=== PATIENT | female | born 1940 | race Caucasian/White ===

== ENCOUNTER 2016-03-27 | Emergency (ER) | payer MEDICARE, OTHER ==
--- NOTE | 2016-03-27 16:27 | ED ---
General Adult HPI - General Chief complaint: Skin/Abscess/Foreign Body Stated complaint: Rash - Shingles Time Seen by Provider: 03/27/16 16:14 Source: patient, RN notes reviewed Mode of arrival: ambulatory Limitations: no limitations - History of Present Illness Initial comments: Patient is a 75-year-old female who presents emergency room today with a chief complaint of a rash that started 3 days ago to the right side of her back. She states she's red blood shingles. She does admit that it is a burning type pain. She states she does not have any medications at home for this. She states typically would take Valium for pain and her nerves. She states she's feeling very anxious because of this. She denies any other complaints associated symptoms. Patient denies any recent fever, chills, shortness of breath, chest pain, back pain, abdominal pain, nausea or vomiting, numbness or tingling, dysuria or hematuria, constipation or diarrhea, headaches or visual changes, or any other complaints. - Related Data Previous Rx's Medication Instructions Recorded Hydrocodone/Acetaminophen [Rosamond 1 each PO Q6HR PRN #20 tab 03/27/16 5-325] valACYclovir HCL [Valacyclovir] 1,000 mg PO TID #21 tab 03/27/16 Allergies Allergy/AdvReac Type Severity Reaction Status Date / Time acetaminophen [From Tylenol] Allergy Unknown Verified 03/27/16 16:11 aspirin Allergy Unknown Verified 03/27/16 16:11 codeine Allergy Unknown Verified 03/27/16 16:11 Corticosteroids Allergy Unknown Verified 03/27/16 16:11 (Glucocorticoids) diphenhydramine HCl Allergy Unknown Verified 03/27/16 16:11 [From Benadryl] epinephrine Allergy Unknown Verified 03/27/16 16:11 iodine Allergy Unknown Verified 03/27/16 16:11 lidocaine HCl Allergy Unknown Verified 03/27/16 16:11 [From Xylocaine] Penicillins Allergy Unknown Verified 03/27/16 16:11 Review of Systems ROS Statement: Those systems with pertinent positive or pertinent negative responses have been documented in the HPI. ROS Other: All systems not noted in ROS Statement are negative. Past Medical History Past Medical History: Asthma, COPD Additional Past Medical History / Comment(s): ovarian cancer History of Any Multi-Drug Resistant Organisms: None Reported Past Psychological History: No Psychological Hx Reported Smoking Status: Current every day smoker Past Alcohol Use History: None Reported Past Drug Use History: None Reported General Exam - General Exam Comments Initial Comments: General: The patient is awake and alert, in no distress, and does not appear acutely ill. Eye: Pupils are equal, round and reactive to light, extra-ocular movements are intact. No nystagmus. There is normal conjunctiva bilaterally. No signs of icterus. Ears, nose, mouth and throat: There are moist mucous membranes and no oral lesions. Neck: The neck is supple, there is no tenderness or JVD. Cardiovascular: There is a regular rate and rhythm. No murmur, rub or gallop is appreciated. Respiratory: Lungs are clear to auscultation, respirations are non-labored, breath sounds are equal. No wheezes, stridor, rales, or rhonchi. Musculoskeletal: Normal ROM, no tenderness. Strength 5/5. Sensation intact. Pulses equal bilaterally 2+. Neurological: A&O x 3. CN II-XII intact, There are no obvious motor or sensory deficits. Coordination appears grossly intact. Speech is normal. Skin: She was rash located to the right posterior back a few scattered spots the same dermatome pattern on the right flank. Psychiatric: Cooperative, appropriate mood & affect, normal judgment. Limitations: no limitations Course Vital Signs 03/27/16 16:10 Temperature 98.1 F Pulse Rate 94 Respiratory 20 Rate Blood Pressure 166/72 O2 Sat by Pulse 95 Oximetry Medical Decision Making - Medical Decision Making Patient's physical findings consistent with shingles rash. Will be treated and advised follow-up the family doctor over the next 2-5 days. She does have ALLERGY to corticosteroids and lidocaine. Admits rash. Will be started on antivirals and given short prescription of pain medication for symptoms. Advised return if any symptoms increase or worsen or for any other concerns. Disposition Clinical Impression: Herpes zoster Disposition: HOME SELF-CARE Condition: Good Instructions: Shingles (ED) Additional Instructions: Please use medications as prescribed. Wear that the medicine may make you drowsy. Please follow-up the family doctor over the next 1-2 days or return here to emergency room if any symptoms increase worsen or for any other concerns. Prescriptions: Hydrocodone/Acetaminophen [Rosamond 5-325] 1 each PO Q6HR PRN #20 tab PRN Reason: Pain valACYclovir HCL [Valacyclovir] 1,000 mg PO TID #21 tab Referrals: None,Stated [Primary Care Provider] - 1-2 days Alberto Perez MD [REFERRING] - 1-2 days Time of Disposition: 16:24
== END 2016-03-27 16:39 | disposition home or self-care (01) ==
CPT/HCPCS: 99282

== ENCOUNTER 2016-04-04 15:42 | Emergency (ER) | payer MEDICARE, OTHER ==
[2016-04-04 16:35] VITALS: BP 158/79; PULSE 75; RESP 20; TEMP 97.7
--- NOTE | 2016-04-04 17:04 | ED ---
Recheck HPI - General Chief Complaint: Recheck/Abnormal Lab/Rx Stated Complaint: Poss shingles Time Seen by Provider: 04/04/16 16:46 Source: patient, RN notes reviewed Mode of arrival: ambulatory Limitations: no limitations - History of Present Illness Initial Comments: Patient presented to the ER requesting a refill on her shingles medication. She states that she was seen in the ER approximately 1 week ago for shingles and given Valtrex which does seem to be helping. She does not have a primary care physician at this time she has not seen them for evaluation or refill. She states that she is not having any constitutional symptoms including headache , fever, nausea, vomiting, abdominal pain. He also states that she has no new rash areas. - Related Data Previous Rx's Medication Instructions Recorded Hydrocodone/Acetaminophen [Paden 1 each PO Q6HR PRN #20 tab 03/27/16 5-325] valACYclovir HCL [Valacyclovir] 1,000 mg PO TID #21 tab 03/27/16 valACYclovir HCL [Valtrex] 1,000 mg PO TID #42 tablet 04/04/16 Allergies Allergy/AdvReac Type Severity Reaction Status Date / Time acetaminophen [From Tylenol] Allergy Unknown Verified 03/27/16 16:28 aspirin Allergy Unknown Verified 03/27/16 16:28 codeine Allergy Unknown Verified 03/27/16 16:28 Corticosteroids Allergy Unknown Verified 03/27/16 16:28 (Glucocorticoids) diphenhydramine HCl Allergy Unknown Verified 03/27/16 16:28 [From Benadryl] epinephrine Allergy Unknown Verified 03/27/16 16:28 iodine Allergy Unknown Verified 03/27/16 16:28 lidocaine HCl Allergy Unknown Verified 03/27/16 16:28 [From Xylocaine] Penicillins Allergy Unknown Verified 03/27/16 16:28 Review of Systems ROS Statement: Those systems with pertinent positive or pertinent negative responses have been documented in the HPI. ROS Other: All systems not noted in ROS Statement are negative. Past Medical History Past Medical History: Asthma, COPD Additional Past Medical History / Comment(s): ovarian cancer History of Any Multi-Drug Resistant Organisms: None Reported Additional Past Surgical History / Comment(s): rectal surgery. Past Psychological History: No Psychological Hx Reported Smoking Status: Current every day smoker Past Alcohol Use History: None Reported Past Drug Use History: None Reported General Exam Limitations: no limitations General appearance: alert, in no apparent distress Head exam: Present: atraumatic, normocephalic Eye exam: Present: normal appearance, PERRL, EOMI Neck exam: Present: normal inspection Respiratory exam: Present: wheezes (Secondary to smoke) Cardiovascular Exam: Present: regular rate, normal rhythm Back exam: Present: rash noted (Right mid back: Erythematous patches with healing vesicles and eschars.) Neurological exam: Present: alert, oriented X3, CN II-XII intact Psychiatric exam: Present: normal affect, normal mood Course Vital Signs 04/04/16 16:31 Temperature 97.7 F Pulse Rate 75 Respiratory 20 Rate Blood Pressure 158/79 O2 Sat by Pulse 90 L Oximetry Medical Decision Making - Medical Decision Making 75-year-old female without a primary care physician came to the ER requesting refill of her Valtrex for shingles. The area was evaluated and it does seem to be improving as there are no active vesicles and dry eschars. Refill was given for 2 weeks on her Valtrex. She was also encouraged to establish a primary care physicians that she did not have to come to the ER for refill. All questions were answered and patient is return with any worsening symptoms or concerns. Disposition Clinical Impression: Herpes zoster Disposition: HOME SELF-CARE Condition: Good Instructions: Shingles (ED) Additional Instructions: To return to ER with worsening symptoms or concerns. Followup with a new PCP in the nest week. Prescriptions: valACYclovir HCL [Valtrex] 1,000 mg PO TID #42 tablet Referrals: Giovany George MD [STAFF PHYSICIAN] - 1-2 days Time of Disposition: 17:04
== END 2016-04-04 17:19 | disposition home or self-care (01) ==
LOC: EC 15:42
DX: B02.9 Zoster without complications (principal); Z88.6 Allergy status to analgesic agent; Z88.4 Allergy status to anesthetic agent; Z88.5 Allergy status to narcotic agent; Z88.0 Allergy status to penicillin; Z88.8 Allergy status to other drugs, medicaments and biological substances; F17.200 Nicotine dependence, unspecified, uncomplicated
CPT/HCPCS: 99282

== ENCOUNTER 2017-10-07 15:34 | Inpatient (IN) | payer MEDICARE, OTHER ==
--- NOTE | 2017-10-07 16:17 | ED ---
General Adult HPI - General Chief complaint: Weakness Stated complaint: dehydration Time Seen by Provider: 10/07/17 15:58 Source: EMS Mode of arrival: EMS Limitations: no limitations - History of Present Illness Initial comments: Gaye Nair is a 76-year-old female with a medical history of ovarian cancer currently undergoing chemotherapy she is brought to the ED today via EMS for evaluation of generalized weakness, altered mental status and decreased by mouth intake. History is provided by the patient's daughter as the patient is minimally able to answer questions. Daughter reports that the patient has been undergoing extensive chemotherapy, she reports that last week the patient was in her usual state of health, able to get off the couch walk around and eat normal meals. She reports that over the past couple days the patient has not eaten or drank anything. Family estimates the patient at 2 ounces of milk yesterday no other by mouth intake. They report that she's become so weak she hasn't gotten off the couch and cannot move. S reports that they found the patient laying on the couch, she had soiled herself in the couch was soiled. They reported that it looked associated been there for a period of time as there was significant amount of muscle around her. Patient was noted to be hypotensive and profoundly dehydrated. - Related Data Home Medications Medication Instructions Recorded Confirmed No Known Home Medications 10/07/17 10/07/17 Allergies Allergy/AdvReac Type Severity Reaction Status Date / Time acetaminophen [From Tylenol] Allergy Unknown Verified 10/07/17 16:39 aspirin Allergy Unknown Verified 10/07/17 16:39 codeine Allergy Unknown Verified 10/07/17 16:39 Corticosteroids Allergy Unknown Verified 10/07/17 16:39 (Glucocorticoids) diphenhydramine HCl Allergy Unknown Verified 10/07/17 16:39 [From Benadryl] epinephrine Allergy Unknown Verified 10/07/17 16:39 ibuprofen [From Motrin] Allergy Rash/Hives Verified 10/07/17 16:39 iodine Allergy Unknown Verified 10/07/17 16:39 lidocaine HCl Allergy Unknown Verified 10/07/17 16:39 [From Xylocaine] Penicillins Allergy Unknown Verified 10/07/17 16:39 Review of Systems ROS Statement: Those systems with pertinent positive or pertinent negative responses have been documented in the HPI. ROS Other: All systems not noted in ROS Statement are negative. Limitations: ROS unobtainable due to patients medical condition Past Medical History Past Medical History: Asthma, COPD Additional Past Medical History / Comment(s): ovarian cancer History of Any Multi-Drug Resistant Organisms: None Reported Additional Past Surgical History / Comment(s): rectal surgery. Past Psychological History: No Psychological Hx Reported Smoking Status: Former smoker Past Alcohol Use History: None Reported Past Drug Use History: None Reported General Exam Limitations: altered mental status General appearance: alert, lethargic, cachectic Head exam: Present: atraumatic, normocephalic, other (As temp oral wasting, eyes are sunken) Eye exam: Present: PERRL, EOMI ENT exam: Present: mucous membranes dry Respiratory exam: Absent: respiratory distress Cardiovascular Exam: Present: normal rhythm, tachycardia GI/Abdominal exam: Present: other (Scaphoid abdomen, nontender to palpation) Rectal exam: Present: deferred Extremities exam: Present: other (Generalized atrophy) Neurological exam: Present: alert, other (Oriented to self, answer yes and no questions) Psychiatric exam: Present: flat affect Skin exam: Present: dry (Skin is dry, there is skin tenting and evidence of dehydration) Course Vital Signs 10/07/17 10/07/17 10/07/17 15:41 16:00 16:30 Temperature 95.9 F L Pulse Rate 101 H 94 90 Respiratory 24 20 20 Rate Blood Pressure 83/48 84/50 76/47 O2 Sat by Pulse 80 L 85 L 79 L Oximetry 10/07/17 10/07/17 10/07/17 17:00 17:35 18:00 Temperature Pulse Rate 90 88 88 Respiratory 18 16 18 Rate Blood Pressure 78/50 81/53 88/50 O2 Sat by Pulse 94 L 99 99 Oximetry 10/07/17 10/07/17 10/07/17 18:30 19:07 19:47 Temperature Pulse Rate 92 92 93 Respiratory 16 16 20 Rate Blood Pressure 107/55 89/51 111/55 O2 Sat by Pulse 91 L 96 98 Oximetry 10/07/17 10/07/17 10/07/17 20:28 20:50 21:16 Temperature 97 F L Pulse Rate 77 95 Respiratory 18 18 Rate Blood Pressure 128/71 88/55 106/56 O2 Sat by Pulse 98 99 97 Oximetry - Reevaluation(s) Reevaluation #1: Patient reevaluated, she has received 1/2 L of IV fluids, she is receiving antibiotics, she is on pressors, at this time the patient is appearing more well -hydrated. She is more alert. Patient is asking who is taking care of her dogs at home. 10/07/17 18:19 Procedures - Central Line Placement Right IJ Consent Obtained: verbal consent Time Out Performed: Yes Patient Placed on Monitor/Pulse Ox: Yes MD Prep: mask, gown, gloves Central Line Prep: Chlorhexidine scrub Local Anesthesia Used: Lidocaine 1% Ultrasound Used for Placement: Yes Central Line Lumen Inserted: triple Bloods Obtained for Lab: Yes Central Line Position: good blood return, all ports aspirated, flushed, capped Dressing Applied: Tegaderm Patient Tolerated Procedure: well Medical Decision Making - Medical Decision Making The patient was seen and evaluated, patient is profoundly cachectic, dehydrated very unwell-appearing Patient is tachycardic, hypothermic, sepsis workup was ordered Family arrived at bedside, confirm the patient is full code and wouldn't want a central line as well as all medications are resuscitative measures Patient becoming hypotensive, Patient noted to becoming more hypotensive despite IV fluids. Risks and benefits of central line were discussed with the family and they provided verbal consent to place a right IJ central line. Central line was placed under ultrasound guidance. Without complication. Labs multiple significant abnormalities, most notably acute kidney failure, acute liver failure, elevated troponin, I suspect these are all secondary to septic shock. IV fluids, broad-spectrum antibiotics and levothyroid have been ordered and are infusing. Reevaluated after IV fluid bolus and Levophed, her blood pressures improvement in her mental status has improved. The patient is now asking about the care of her dogs at home. Although she does still appear very cachectic and unwell. Due to the multiple abnormalities in her labs a computed tomography scan as well as an ultrasound of the abdomen were ordered. Daughter stated the patient received multiple radiation treatments to the brain for metastases, considering her mental status change in history of best the brain and CT of the head was ordered With no acute findings Liver suggestive of multiple metastases Patient care was discussed with the patient's oncology team who agree with the plan for admission to ICU with a consult to oncology and potentially consult palliative medicine. Patient care was discussed with Dr. Franklin who agrees with plan for admission to the ICU. Patient care was discussed with Dr. Gomez the environmental services tech who agrees with workup as ordered, treatment with broad-spectrum antibiotics, levothyroid, IV fluids. He accepts the patient to the ICU service. Patient was transferred to the intensive care unit, patient remained on a nonrebreather, fluids infusing through the central line, improved on the levophed - Lab Data Result diagrams: 10/07/17 17:30 10/07/17 17:30 Lab Results 10/07/17 10/07/17 10/07/17 Range/Units 17:30 17:30 17:30 WBC 9.6 (3.8-10.6) k/uL RBC 4.16 (3.80-5.40) m/uL Hgb 13.7 (11.4-16.0) gm/dL Hct 42.1 (34.0-46.0) % MCV 101.1 H (80.0-100.0) fL MCH 33.0 (25.0-35.0) pg MCHC 32.6 (31.0-37.0) g/dL RDW 19.9 H (11.5-15.5) % Plt Count 92 L (150-450) k/uL Neutrophils % 89 % Lymphocytes % 3 % Monocytes % 6 % Eosinophils % 0 % Basophils % 0 % Neutrophils # 8.6 H (1.3-7.7) k/uL Lymphocytes # 0.3 L (1.0-4.8) k/uL Monocytes # 0.6 (0-1.0) k/uL Eosinophils # 0.0 (0-0.7) k/uL Basophils # 0.0 (0-0.2) k/uL Manual Slide Review Performed Hypochromasia Slight Anisocytosis Slight Macrocytosis Moderate PT 16.9 H (9.0-12.0) sec INR 1.9 H (<1.2) APTT 37.3 H (22.0-30.0) sec Sodium 138 (137-145) mmol/L Potassium 4.4 (3.5-5.1) mmol/L Chloride 109 H (98-107) mmol/L Carbon Dioxide 20 L (22-30) mmol/L Anion Gap 9 mmol/L BUN 99 H* (7-17) mg/dL Creatinine 1.71 H (0.52-1.04) mg/dL Est GFR (CKD-EPI)AfAm 33 (>60 ml/min/1.73 sqM) Est GFR (CKD-EPI)NonAf 28 (>60 ml/min/1.73 sqM) Glucose 106 H (74-99) mg/dL Plasma Lactic Acid Stalin (0.7-2.0) mmol/L Calcium 9.3 (8.4-10.2) mg/dL Total Bilirubin 7.7 H (0.2-1.3) mg/dL AST 288 H (14-36) U/L ALT 122 H (9-52) U/L Alkaline Phosphatase 659 H (38-126) U/L Total Creatine Kinase (30-135) U/L CK-MB (CK-2) (0.0-2.4) ng/mL CK-MB (CK-2) Rel Index Troponin I (0.000-0.034) ng/mL Total Protein 4.1 L (6.3-8.2) g/dL Albumin 2.1 L (3.5-5.0) g/dL Urine Color Urine Appearance (Clear) Urine pH (5.0-8.0) Ur Specific Elizabeth (1.001-1.035) Urine Protein (Negative) Urine Glucose (UA) (Negative) Urine Ketones (Negative) Urine Blood (Negative) Urine Nitrite (Negative) Urine Bilirubin (Negative) Urine Urobilinogen (<2.0) mg/dL Ur Leukocyte Esterase (Negative) 10/07/17 10/07/17 10/07/17 Range/Units 17:30 17:30 18:00 WBC (3.8-10.6) k/uL RBC (3.80-5.40) m/uL Hgb (11.4-16.0) gm/dL Hct (34.0-46.0) % MCV (80.0-100.0) fL MCH (25.0-35.0) pg MCHC (31.0-37.0) g/dL RDW (11.5-15.5) % Plt Count (150-450) k/uL Neutrophils % % Lymphocytes % % Monocytes % % Eosinophils % % Basophils % % Neutrophils # (1.3-7.7) k/uL Lymphocytes # (1.0-4.8) k/uL Monocytes # (0-1.0) k/uL Eosinophils # (0-0.7) k/uL Basophils # (0-0.2) k/uL Manual Slide Review Hypochromasia Anisocytosis Macrocytosis PT (9.0-12.0) sec INR (<1.2) APTT (22.0-30.0) sec Sodium (137-145) mmol/L Potassium (3.5-5.1) mmol/L Chloride (98-107) mmol/L Carbon Dioxide (22-30) mmol/L Anion Gap mmol/L BUN (7-17) mg/dL Creatinine (0.52-1.04) mg/dL Est GFR (CKD-EPI)AfAm (>60 ml/min/1.73 sqM) Est GFR (CKD-EPI)NonAf (>60 ml/min/1.73 sqM) Glucose (74-99) mg/dL Plasma Lactic Acid Stalin 2.0 (0.7-2.0) mmol/L Calcium (8.4-10.2) mg/dL Total Bilirubin (0.2-1.3) mg/dL AST (14-36) U/L ALT (9-52) U/L Alkaline Phosphatase (38-126) U/L Total Creatine Kinase 112 (30-135) U/L CK-MB (CK-2) 3.8 H* (0.0-2.4) ng/mL CK-MB (CK-2) Rel Index 3.4 Troponin I 0.839 H* (0.000-0.034) ng/mL Total Protein (6.3-8.2) g/dL Albumin (3.5-5.0) g/dL Urine Color Dark Brown Urine Appearance Clear (Clear) Urine pH 5.0 (5.0-8.0) Ur Specific Elizabeth 1.014 (1.001-1.035) Urine Protein Trace H (Negative) Urine Glucose (UA) Negative (Negative) Urine Ketones Negative (Negative) Urine Blood Negative (Negative) Urine Nitrite Negative (Negative) Urine Bilirubin 2+ H (Negative) Urine Urobilinogen 4.0 (<2.0) mg/dL Ur Leukocyte Esterase Negative (Negative) Disposition Clinical Impression: Septic shock, Elevated troponin, Elevated liver enzymes, Acute kidney failure, 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
--- NOTE | 2017-10-07 16:56 | XR ---
EXAMINATION TYPE: XR chest 1V portable DATE OF EXAM: 10/07/2017 COMPARISON: 10/25/2014 HISTORY: Fever and weakness TECHNIQUE: Single frontal view of the chest is obtained. FINDINGS: There is blunting of right costophrenic angle with patchy infiltrate at the right lung bas e. There is no heart failure. Heart is shifted slightly to the right side. There are chest leads. IMPRESSION: There is new infiltrate and atelectasis and pleural reaction at the right lung base comp ared to old exam. No heart failure.
[2017-10-07] MEDS: SODIUM CHLORIDE 0.9% 500 ML IV SCH (17:30)
[2017-10-07] MEDS ORDERED: NOREPINEPHRINE 4 MG in DEXTROSE 5% IN WATER 250 ML IV ONE ×2 (17:32)
[2017-10-07] MEDS ORDERED: VANCOMYCIN 500 MG in SODIUM CHLORIDE 0.9% 250 ML IVPB ONE (17:34)
[2017-10-07] MEDS ORDERED: CEFEPIME 1 GM in SODIUM CHLORIDE 0.9% 50 ML IVPB STA (17:34)
[2017-10-07] MEDS: SODIUM CHLORIDE 0.9% 1,000 ML IV SCH (18:06)
[2017-10-07 18:14] LABS: INR 1.9 (<1.2); Partial Thromboplastin Time 37.3 sec (22.0-30.0); Prothrombin Time 16.9 sec (9.0-12.0)
[2017-10-07 18:18] LABS: Albumin 2.1 g/dL (3.5-5.0); Calcium 9.3 mg/dL (8.4-10.2); Potassium 4.4 mmol/L (3.5-5.1); Total Bilirubin 7.7 mg/dL (0.2-1.3); Total Protein 4.1 g/dL (6.3-8.2)
[2017-10-07 18:25] LABS: Appearance,Urine Clear (Clear); Bilirubin,Urine 2+ (Negative); Blood,Urine Negative (Negative); Color,Urine Dark Brown; Glucose,Urine (UA) Negative (Negative); Ketones,Urine Negative (Negative); Leukocyte Esterase,Urine Negative (Negative); Nitrite,Urine Negative (Negative); Protein,Urine Trace (Negative); Specific Gravity,Urine 1.014 (1.001-1.035)
[2017-10-07 18:29] LABS: Anisocytosis Slight; Basophils % (A) 0 %; Eosinophils % (A) 0 %; HCT 42.1 % (34.0-46.0); HGB 13.7 gm/dL (11.4-16.0); Hypochromasia Slight; Lymphocytes # (A) 0.3 k/uL (1.0-4.8); Lymphocytes % (A) 3 %; MCHC 32.6 g/dL (31.0-37.0); MCV 101.1 fL (80.0-100.0); Macrocytosis Moderate; Mean Platelet Volume 9.2; Monocytes # (A) 0.6 k/uL (0-1.0); Monocytes % (A) 6 %; Neutrophils # (A) 8.6 k/uL (1.3-7.7); Neutrophils % (A) 89 %; RBC 4.16 m/uL (3.80-5.40); RDW 19.9 % (11.5-15.5); WBC 9.6 k/uL (3.8-10.6)
[2017-10-07 18:44] LABS: Creatine Kinase MB 3.8 ng/mL (0.0-2.4); Troponin I 0.839 ng/mL (0.000-0.034)
[2017-10-07 18:53] LABS: Platelet Count 92 k/uL (150-450)
[2017-10-07] MEDS ORDERED: NALOXONE 0.4 MG/ML 1 ML VIAL IV PRN (19:33)
--- NOTE | 2017-10-07 20:19 | US ---
EXAMINATION TYPE: US gallbladder DATE OF EXAM: 10/07/2017 COMPARISON: NONE CLINICAL HISTORY: Pain. EXAM MEASUREMENTS: Liver Length: 20.0 cm Gallbladder Wall: not positively identified CBD: 0.6 cm Right Kidney: 8.4 x 2.9 x 3.7 cm Patient unable to cooperate with examiner, trying to cover her abdomen during exam. Technically diffi cult and limited study. Pancreas: limited visualization partially obscure by bowel gas, no evident mass, enlarged Liver: grossly heterogeneous, possible multiple liver masses Gallbladder: unable to positively identify gallbladder Evidence for sonographic Degroot's sign: no CBD: wnl Right Kidney: atrophied IMPRESSION: Gallbladder is not seen. No dilated ducts. Heterogeneous liver suspicious for multiple li phill masses. No ascites. Right kidney is small consistent with atrophy. No hydronephrosis.
--- NOTE | 2017-10-07 20:52 | CT ---
EXAMINATION TYPE: CT brain nohemy ramirez DATE OF EXAM: 10/07/2017 COMPARISON: CT brain 03/09/2010 HISTORY: Generalized weakness. CT DLP: 1140.8 mGycm Automated exposure control for dose reduction was used. TECHNIQUE: CT scan of the head and cervical spine are performed without contrast. FINDINGS: There is mild cerebral cortical atrophy. There is no mass effect nor midline shift. There is no evidence of intracranial hemorrhage. The calvarium is intact. Cervical vertebra have normal alignment. Disc spaces are narrowed at C4-5 C5-6. There is old anterior fusion at C5-6. Facet joints are intact. The skull base is intact. IMPRESSION: Cerebral atrophy. No acute intracranial abnormality. Old mild chronic small vessel ischemia in the le ft posterior frontal lobe without change. Spondylotic changes in the cervical spine. No fracture.
--- NOTE | 2017-10-07 21:02 | CT ---
EXAMINATION TYPE: CT abdomen pelvis wo con DATE OF EXAM: 10/07/2017 COMPARISON: None HISTORY: Generalized weakness. CT DLP: 391.2 mGycm Automated exposure control for dose reduction was used. TECHNIQUE: Helical acquisition of images was performed from the lung bases through the pelvis. FINDINGS: There is some infiltrate and atelectasis at the right lung base. There is also small infiltrate at th e left posterior lung base. Liver is large and measures 20 cm in length. Spleen appears normal. There is no evidence of pancreati c mass. There is no evidence of free air. The kidneys show no hydronephrosis. There is free fluid around the liver. There is a 9 x 6 cm thick-walled cystic fluid collection in the right upper quadrant inferior to the right lobe of the liver. There is also some air on the medial a t anterior aspect of the mass. This is not communicating with the bowel. There are distended gas and fluid-filled loops of small bowel consistent with ileus. Large bowel is n ot dilated. There is free fluid in the pelvis. There is Gresham catheter in the urinary bladder. I see no bony destructive process. IMPRESSION: THERE IS FREE FLUID IN THE RIGHT PERIHEPATIC REGION WELL IN THE PELVIS. THERE IS A COMPLEX RIGH T UPPER QUADRANT MASS. IS NOT CLEAR IF THIS IS RETROPERITONEAL. THIS IS LIKELY A SUBHEPATIC ABSCESS. THERE IS EVIDENCE OF SMALL BOWEL ILEUS.
[2017-10-07 21:49] LABS: Glucose,Whole Blood 115 mg/dL (75-99)
[2017-10-07] MEDS ORDERED: VANCOMYCIN IV PER PHARMACY 1 EACH MISC MISCELLANE PRN (22:22)
[2017-10-07] MEDS ORDERED: SODIUM CHLORIDE 0.9% 1,000 ML IV ONE ×2 (22:49→23:53)
[2017-10-07] MEDS: NOREPINEPHRIN 16 MG-0.9%NS PMX 16 MG/250 ML ML IV SCH (23:22)
[2017-10-08] MEDS ORDERED: MEROPENEM 1 GM in SODIUM CHLORIDE 0.9% 100 ML IVPB SCH ×2
[2017-10-08 05:44] LABS: Anisocytosis Moderate; Basophils % (A) 0 %; Eosinophils % (A) 0 %; HCT 51.7 % (34.0-46.0); HGB 15.8 gm/dL (11.4-16.0); Hypochromasia Marked; Lymphocytes # (A) 2.2 k/uL (1.0-4.8); Lymphocytes % (A) 18 %; MCH 32.3 pg (25.0-35.0); MCHC 30.5 g/dL (31.0-37.0); MCV 105.6 fL (80.0-100.0); Macrocytosis Marked; Monocytes # (A) 0.6 k/uL (0-1.0); Monocytes % (A) 5 %; Neutrophils # (A) 8.9 k/uL (1.3-7.7); Neutrophils % (A) 73 %; Platelet Count 106 k/uL (150-450); RDW 20.2 % (11.5-15.5); WBC 12.2 k/uL (3.8-10.6)
[2017-10-08 05:52] LABS: Calcium 9.4 mg/dL (8.4-10.2); Magnesium 2.5 mg/dL (1.6-2.3); Phosphorus 4.9 mg/dL (2.5-4.5); Potassium 4.9 mmol/L (3.5-5.1)
[2017-10-08 05:54] LABS: INR 1.8 (<1.2); Partial Thromboplastin Time 36.9 sec (22.0-30.0); Prothrombin Time 16.2 sec (9.0-12.0)
[2017-10-08] MEDS ORDERED: VANCOMYCIN 750 MG in SODIUM CHLORIDE 0.9% 250 ML IVPB ONE (06:00)
[2017-10-08 06:10] LABS: Glucose,Whole Blood 169 mg/dL (75-99)
[2017-10-08] MEDS: SODIUM CHLORIDE 0.9% 1,000 ML IV SCH (06:10)
[2017-10-08 06:18] LABS: Poikilocytosis (M) Present
--- NOTE | 2017-10-08 07:11 | XR ---
EXAMINATION TYPE: XR chest 1V DATE OF EXAM: 10/08/2017 HISTORY: resp distress. REFERENCE: Previous study dated 10/07/2017. FINDINGS: A right internal jugular sheath catheter is been inserted. Its tip is in the superior vena cava. The lungs are overinflated. There is right basilar airspace disease as well as a small right effusion . The overall appearance has not changed. The heart is not enlarged. IMPRESSION: 1. CONTINUING RIGHT BASILAR AIRSPACE DISEASE. 2. SMALL RIGHT EFFUSION.
[2017-10-08] MEDS: NOREPINEPHRIN 16 MG-0.9%NS PMX 16 MG/250 ML ML IV SCH (07:17)
[2017-10-08] MEDS ORDERED: SODIUM CHLORIDE 0.9% 1,000 ML IV ONE ×4 (08:00→17:16)
[2017-10-08 08:23] LABS: ABG Base Excess -14.4 mmol/L; ABG HCO3 15 mmol/L (21-25); ABG PCO2 43 mmHg (35-45); ABG PO2 132 mmHg (83-108); ABG TCO2 16 mmol/L (19-24)
[2017-10-08] MEDS ORDERED: SODIUM BICARB 8.4% 50 ML SYR (1 MEQ/ML) ONE (08:25)
[2017-10-08] MEDS ORDERED: SODIUM BICARB 8.4% 50 ML SYR (1 MEQ/ML) IV STA (08:34)
[2017-10-08 08:37] LABS: Total Bilirubin 8.6 mg/dL (0.2-1.3)
[2017-10-08] MEDS: DEXTROSE 5% IN WATER 1,000 ML with SODIUM BICARB (1 MEQ/ML) 150 ML IV ONE ×2 (08:37→20:26)
[2017-10-08] MEDS: PANTOPRAZOLE 40 MG/10 ML VIAL IV SCH (08:47)
--- NOTE | 2017-10-08 10:07 | P.GSCN ---
History of Present Illness Consult date: 10/08/17 Reason for Consult: Liver mass History of present illness: This is a 76-year-old female is admitted to the ICU. The patient is unable to give any significant medical history. Per the chart the patient has a history of ovarian cancer is currently undergoing medical therapy. Patient was admitted through the emergency room with complaints of abdominal pain. Her CAT scan shows a 6 cm liver mass that could possibly be a hepatic abscess. Past Medical History Past Medical History: Asthma, COPD Additional Past Medical History / Comment(s): ovarian cancer, lung CA History of Any Multi-Drug Resistant Organisms: None Reported Past Surgical History: Cholecystectomy, Hysterectomy Additional Past Surgical History / Comment(s): rectal surgery. Past Anesthesia/Blood Transfusion Reactions: No Reported Reaction Past Psychological History: No Psychological Hx Reported Smoking Status: Former smoker Past Alcohol Use History: None Reported Past Drug Use History: None Reported Medications and Allergies Home Medications Medication Instructions Recorded Confirmed Type No Known Home Medications 10/07/17 10/07/17 History Allergies Allergy/AdvReac Type Severity Reaction Status Date / Time acetaminophen [From Tylenol] Allergy Unknown Verified 10/07/17 16:39 aspirin Allergy Unknown Verified 10/07/17 16:39 codeine Allergy Unknown Verified 10/07/17 16:39 Corticosteroids Allergy Unknown Verified 10/07/17 16:39 (Glucocorticoids) diphenhydramine HCl Allergy Unknown Verified 10/07/17 16:39 [From Benadryl] epinephrine Allergy Unknown Verified 10/07/17 16:39 ibuprofen [From Motrin] Allergy Rash/Hives Verified 10/07/17 16:39 iodine Allergy Unknown Verified 10/07/17 16:39 lidocaine HCl Allergy Unknown Verified 10/07/17 16:39 [From Xylocaine] Penicillins Allergy Unknown Verified 10/07/17 16:39 Surgical - Exam Vital Signs Temp Pulse Resp BP Pulse Ox 95.9 F L 101 H 24 83/48 80 L 10/07/17 15:41 10/07/17 15:41 10/07/17 15:41 10/07/17 15:41 10/07/17 15:41 - General well developed, no distress - Eyes PERRL - ENT normal pinna - Neck no masses - Respiratory normal expansion - Cardiovascular Rhythm: regular - Abdomen Mild tenderness throughout. There is no rebound or guarding. Abdomen: soft, no guarding, no rigid, no rebound Results - Labs 10/08/17 05:10 10/08/17 05:10 Abnormal Lab Results - Last 24 Hours (Table) 10/07/17 10/07/17 10/07/17 Range/Units 17:30 17:30 17:30 WBC (3.8-10.6) k/uL Hct (34.0-46.0) % MCV 101.1 H (80.0-100.0) fL MCHC (31.0-37.0) g/dL RDW 19.9 H (11.5-15.5) % Plt Count 92 L (150-450) k/uL Neutrophils # 8.6 H (1.3-7.7) k/uL Lymphocytes # 0.3 L (1.0-4.8) k/uL PT 16.9 H (9.0-12.0) sec INR 1.9 H (<1.2) APTT 37.3 H (22.0-30.0) sec ABG pH (7.35-7.45) ABG pO2 (83-108) mmHg ABG HCO3 (21-25) mmol/L ABG Total CO2 (19-24) mmol/L ABG O2 Saturation (94-97) % Chloride 109 H (98-107) mmol/L Carbon Dioxide 20 L (22-30) mmol/L BUN 99 H* (7-17) mg/dL Creatinine 1.71 H (0.52-1.04) mg/dL Glucose 106 H (74-99) mg/dL POC Glucose (mg/dL) (75-99) mg/dL Phosphorus (2.5-4.5) mg/dL Magnesium (1.6-2.3) mg/dL Total Bilirubin 7.7 H (0.2-1.3) mg/dL AST 288 H (14-36) U/L ALT 122 H (9-52) U/L Alkaline Phosphatase 659 H (38-126) U/L CK-MB (CK-2) (0.0-2.4) ng/mL Troponin I (0.000-0.034) ng/mL Total Protein 4.1 L (6.3-8.2) g/dL Albumin 2.1 L (3.5-5.0) g/dL Urine Protein (Negative) Urine Bilirubin (Negative) 10/07/17 10/07/17 10/07/17 Range/Units 17:30 18:00 21:48 WBC (3.8-10.6) k/uL Hct (34.0-46.0) % MCV (80.0-100.0) fL MCHC (31.0-37.0) g/dL RDW (11.5-15.5) % Plt Count (150-450) k/uL Neutrophils # (1.3-7.7) k/uL Lymphocytes # (1.0-4.8) k/uL PT (9.0-12.0) sec INR (<1.2) APTT (22.0-30.0) sec ABG pH (7.35-7.45) ABG pO2 (83-108) mmHg ABG HCO3 (21-25) mmol/L ABG Total CO2 (19-24) mmol/L ABG O2 Saturation (94-97) % Chloride (98-107) mmol/L Carbon Dioxide (22-30) mmol/L BUN (7-17) mg/dL Creatinine (0.52-1.04) mg/dL Glucose (74-99) mg/dL POC Glucose (mg/dL) 115 H (75-99) mg/dL Phosphorus (2.5-4.5) mg/dL Magnesium (1.6-2.3) mg/dL Total Bilirubin (0.2-1.3) mg/dL AST (14-36) U/L ALT (9-52) U/L Alkaline Phosphatase (38-126) U/L CK-MB (CK-2) 3.8 H* (0.0-2.4) ng/mL Troponin I 0.839 H* (0.000-0.034) ng/mL Total Protein (6.3-8.2) g/dL Albumin (3.5-5.0) g/dL Urine Protein Trace H (Negative) Urine Bilirubin 2+ H (Negative) 10/08/17 10/08/17 10/08/17 Range/Units 05:10 05:10 05:10 WBC 12.2 H (3.8-10.6) k/uL Hct 51.7 H (34.0-46.0) % MCV 105.6 H (80.0-100.0) fL MCHC 30.5 L (31.0-37.0) g/dL RDW 20.2 H (11.5-15.5) % Plt Count 106 L (150-450) k/uL Neutrophils # 8.9 H (1.3-7.7) k/uL Lymphocytes # (1.0-4.8) k/uL PT 16.2 H (9.0-12.0) sec INR 1.8 H (<1.2) APTT 36.9 H (22.0-30.0) sec ABG pH (7.35-7.45) ABG pO2 (83-108) mmHg ABG HCO3 (21-25) mmol/L ABG Total CO2 (19-24) mmol/L ABG O2 Saturation (94-97) % Chloride 114 H (98-107) mmol/L Carbon Dioxide 13 L (22-30) mmol/L BUN 91 H* (7-17) mg/dL Creatinine 1.50 H (0.52-1.04) mg/dL Glucose 156 H (74-99) mg/dL POC Glucose (mg/dL) (75-99) mg/dL Phosphorus 4.9 H (2.5-4.5) mg/dL Magnesium 2.5 H (1.6-2.3) mg/dL Total Bilirubin (0.2-1.3) mg/dL AST (14-36) U/L ALT (9-52) U/L Alkaline Phosphatase (38-126) U/L CK-MB (CK-2) (0.0-2.4) ng/mL Troponin I (0.000-0.034) ng/mL Total Protein (6.3-8.2) g/dL Albumin (3.5-5.0) g/dL Urine Protein (Negative) Urine Bilirubin (Negative) 10/08/17 10/08/17 10/08/17 Range/Units 05:10 06:07 08:16 WBC (3.8-10.6) k/uL Hct (34.0-46.0) % MCV (80.0-100.0) fL MCHC (31.0-37.0) g/dL RDW (11.5-15.5) % Plt Count (150-450) k/uL Neutrophils # (1.3-7.7) k/uL Lymphocytes # (1.0-4.8) k/uL PT (9.0-12.0) sec INR (<1.2) APTT (22.0-30.0) sec ABG pH 7.14 L* (7.35-7.45) ABG pO2 132 H (83-108) mmHg ABG HCO3 15 L (21-25) mmol/L ABG Total CO2 16 L (19-24) mmol/L ABG O2 Saturation 99.0 H (94-97) % Chloride (98-107) mmol/L Carbon Dioxide (22-30) mmol/L BUN (7-17) mg/dL Creatinine (0.52-1.04) mg/dL Glucose (74-99) mg/dL POC Glucose (mg/dL) 169 H (75-99) mg/dL Phosphorus (2.5-4.5) mg/dL Magnesium (1.6-2.3) mg/dL Total Bilirubin 8.6 H (0.2-1.3) mg/dL AST 309 H (14-36) U/L ALT 139 H (9-52) U/L Alkaline Phosphatase 782 H (38-126) U/L CK-MB (CK-2) (0.0-2.4) ng/mL Troponin I (0.000-0.034) ng/mL Total Protein (6.3-8.2) g/dL Albumin (3.5-5.0) g/dL Urine Protein (Negative) Urine Bilirubin (Negative) Microbiology - Last 24 Hours (Table) 10/07/17 18:00 Urine Culture - Preliminary Urine,Voided Diabetes panel 10/07/17 10/08/17 10/08/17 Range/Units 17:30 05:10 05:10 Sodium 138 142 (137-145) mmol/L Potassium 4.4 4.9 (3.5-5.1) mmol/L Chloride 109 H 114 H (98-107) mmol/L Carbon Dioxide 20 L 13 L (22-30) mmol/L BUN 99 H* 91 H* (7-17) mg/dL Creatinine 1.71 H 1.50 H (0.52-1.04) mg/dL Glucose 106 H 156 H (74-99) mg/dL Calcium 9.3 9.4 (8.4-10.2) mg/dL AST 288 H 309 H (14-36) U/L ALT 122 H 139 H (9-52) U/L Alkaline Phosphatase 659 H 782 H (38-126) U/L Total Protein 4.1 L (6.3-8.2) g/dL Albumin 2.1 L (3.5-5.0) g/dL Calcium panel 10/07/17 10/08/17 Range/Units 17:30 05:10 Calcium 9.3 9.4 (8.4-10.2) mg/dL Phosphorus 4.9 H (2.5-4.5) mg/dL Albumin 2.1 L (3.5-5.0) g/dL Pituitary panel 10/07/17 10/08/17 Range/Units 17:30 05:10 Sodium 138 142 (137-145) mmol/L Potassium 4.4 4.9 (3.5-5.1) mmol/L Chloride 109 H 114 H (98-107) mmol/L Carbon Dioxide 20 L 13 L (22-30) mmol/L BUN 99 H* 91 H* (7-17) mg/dL Creatinine 1.71 H 1.50 H (0.52-1.04) mg/dL Glucose 106 H 156 H (74-99) mg/dL Calcium 9.3 9.4 (8.4-10.2) mg/dL Adrenal panel 10/07/17 10/08/17 10/08/17 Range/Units 17:30 05:10 05:10 Sodium 138 142 (137-145) mmol/L Potassium 4.4 4.9 (3.5-5.1) mmol/L Chloride 109 H 114 H (98-107) mmol/L Carbon Dioxide 20 L 13 L (22-30) mmol/L BUN 99 H* 91 H* (7-17) mg/dL Creatinine 1.71 H 1.50 H (0.52-1.04) mg/dL Glucose 106 H 156 H (74-99) mg/dL Calcium 9.3 9.4 (8.4-10.2) mg/dL Total Bilirubin 7.7 H 8.6 H (0.2-1.3) mg/dL AST 288 H 309 H (14-36) U/L ALT 122 H 139 H (9-52) U/L Alkaline Phosphatase 659 H 782 H (38-126) U/L Total Protein 4.1 L (6.3-8.2) g/dL Albumin 2.1 L (3.5-5.0) g/dL - Imaging CT scan - abdomen: report reviewed (9 by 6 cm right upper quadrant complex mass. This could possibly be a liver abscess. Or be originating from the retro -perineum.) Assessment and Plan Assessment: Right upper quadrant mass. Patient will be scheduled for interventional radiology to perform percutaneous aspiration/biopsy.
[2017-10-08 11:54] LABS: Glucose,Whole Blood 200 mg/dL (75-99)
[2017-10-08] MEDS: MEROPENEM 1 GM in SODIUM CHLORIDE 0.9% 100 ML IVPB SCH ×2 (12:28→23:09)
[2017-10-08 12:57] VITALS: BMI 19.3
[2017-10-08] MEDS ORDERED: MORPHINE SULFATE 4 MG/ML SYRINGE IVP PRN (14:24)
--- NOTE | 2017-10-08 14:47 | P.CNPUL ---
History of Present Illness Consult date: 10/08/17 Requesting physician: Chevy E Sheet Reason for consult: dyspnea, other (Hypertension, possible abdominal sepsis) Chief complaint: Weakness History of present illness: This is a 76-year-old female with history of metastatic ovarian cancer, undergoing chemotherapy brought into the ER yesterday with generalized weakness. Patient has been confused, she had no oral intake for a number of days, patient is apparently undergoing extensive chemotherapy for ovarian cancer. And over the last 7 days, patient has been getting weaker, unable to eat, confused, unable to walk, and basically going downhill steadily. Patient has been laying on the couch, soiling herself and unable to get to the bathroom. Upon arrival to the ER, the patient was profoundly hypotensive and dehydrated. Patient was given multiple boluses of fluids, a central line was placed by the ER physician, and she was placed on norepinephrine presently at 40 mcg/m. Since admission last night, the patient was given more fluid boluses , and her urine output remains marginal, blood pressure remains relatively low. ABG this morning showed a pO2 of 132 pH of 7.14 and pCO2 of 43. CBC is relatively normal. CT of the abdomen and pelvis showed significant abnormalities there is a large liver, free fluid noted around the liver, there is also a 96 cm thick walled cystic fluid collection in the right upper quadrant just below the right lobe of the liver from air in the medial at anterior aspect of the mass. The right upper quadrant mass was felt to be complex in nature, and the possibility of abscess was raised. However when the interventional radiologist was consulted for possible subcutaneous drainage, he felt that this is likely a metastatic mass in the right upper quadrant rather than being an abscess. General surgery was consulted, and felt that the patient is not a candidate for any surgical intervention at this point. At this point patient was placed on antibiotics empirically, infectious disease consult patient was initiated, patient has ALLERGIES to multiple medications, and her overall clinical status seems extremely poor at this point. CODE STATUS is full code at this point according to her son and daughter. These were previously expressed patient's wishes according to the children. The patient is confused, she is unable to give any history, she is moaning and groaning in bed, and she was placed on sodium bicarb drip for anion gap metabolic acidosis. And she is presently on non-rebreather mask with a pO2 of 132. Review of Systems ROS unobtainable: due to mental status Past Medical History Past Medical History: Asthma, COPD Additional Past Medical History / Comment(s): ovarian cancer, lung CA History of Any Multi-Drug Resistant Organisms: None Reported Past Surgical History: Cholecystectomy, Hysterectomy Additional Past Surgical History / Comment(s): rectal surgery. Past Anesthesia/Blood Transfusion Reactions: No Reported Reaction Past Psychological History: No Psychological Hx Reported Smoking Status: Former smoker Past Alcohol Use History: None Reported Past Drug Use History: None Reported Medications and Allergies Home Medications Medication Instructions Recorded Confirmed Type No Known Home Medications 10/07/17 10/07/17 History Allergies Allergy/AdvReac Type Severity Reaction Status Date / Time acetaminophen [From Tylenol] Allergy Unknown Verified 10/07/17 16:39 aspirin Allergy Unknown Verified 10/07/17 16:39 codeine Allergy Unknown Verified 10/07/17 16:39 Corticosteroids Allergy Unknown Verified 10/07/17 16:39 (Glucocorticoids) diphenhydramine HCl Allergy Unknown Verified 10/07/17 16:39 [From Benadryl] epinephrine Allergy Unknown Verified 10/07/17 16:39 ibuprofen [From Motrin] Allergy Rash/Hives Verified 10/07/17 16:39 iodine Allergy Unknown Verified 10/07/17 16:39 lidocaine HCl Allergy Unknown Verified 10/07/17 16:39 [From Xylocaine] Penicillins Allergy Unknown Verified 10/07/17 16:39 Physical Exam Vitals: Vital Signs Temp Pulse Resp BP Pulse Ox 10/08/17 14:00 96 16 99/39 93 L 10/08/17 13:45 106 H 23 99/42 95 10/08/17 13:30 103 H 20 95/40 97 10/08/17 13:15 93 16 94/42 97 10/08/17 13:00 95 17 95/45 97 10/08/17 12:45 115 H 19 106/45 100 10/08/17 12:30 135 H 18 106/44 98 10/08/17 12:15 99 17 98/41 97 10/08/17 12:00 98.0 F 103 H 25 H 113/46 97 10/08/17 11:45 111 H 25 H 108/49 94 L 10/08/17 11:30 103 H 18 97/55 93 L 10/08/17 11:15 112 H 23 103/47 92 L 10/08/17 11:00 106 H 42 H 95/50 91 L 18 10:45 101 H 18 104/50 93 L 10/08/17 10:30 112 H 34 H 111/43 91 L 18 10:15 130 H 29 H 113/46 88 L 10/08/17 10:00 123 H 27 H 105/57 94 L 10/08/17 09:45 108 H 19 105/46 90 L 10/08/17 09:30 108 H 26 H 93/46 93 L 18 09:15 110 H 28 H 96/50 96 10/08/17 09:00 103 H 30 H 99/44 98 10/08/17 08:45 102 H 23 104/50 97 10/08/17 08:30 104 H 34 H 119/50 86 L 18 08:15 97.6 F 100 28 H 107/60 81 L 10/08/17 08:00 103 H 26 H 114/58 100 10/08/17 07:45 100 43 H 111/67 86 L 10/08/17 07:30 113 H 35 H 111/49 95 18 07:15 100 17 110/50 10/08/17 07:00 101 H 37 H 106/54 87 L 10/08/17 06:45 107 H 26 H 103/45 92 L 18 06:30 104 H 31 H 102/52 81 L 18 06:15 99 23 103/45 98 18 06:00 106 H 24 103/46 92 L 18 05:45 107 H 27 H 113/53 95 18 05:30 104 H 39 H 107/56 93 L 10/08/17 05:15 104 H 40 H 114/47 96 18 05:00 103 H 25 H 105/59 98 18 04:45 103 H 24 109/88 99 18 04:30 126 H 30 H 83/48 98 10/08/18 04:15 106 H 17 100/49 96 18 04:00 97.5 F L 104 H 19 107/52 96 18 03:45 108 H 27 H 107/55 98 10/08/17 03:30 107 H 20 106/51 89 L 10/08/17 03:15 107 H 31 H 100/46 89 L 10/08/17 03:00 106 H 32 H 100/50 82 L 10/08/17 02:45 107 H 24 96/59 100 10/08/17 02:30 107 H 16 108/52 99 10/08/17 02:15 103 H 17 93/48 99 10/08/17 02:00 107 H 27 H 113/50 98 10/08/17 01:45 105 H 18 129/56 95 10/08/17 01:30 101 H 35 H 97/55 96 10/08/17 01:15 101 H 19 107/85 95 10/08/17 01:00 97 17 110/69 91 L 10/08/17 00:45 91 18 106/77 91 L 10/08/17 00:30 97.4 F L 94 18 84/47 100 10/08/17 00:15 92 25 H 84/38 98 10/08/17 00:00 109 H 23 65/46 92 L 10/07/17 23:45 102 H 27 H 80/42 100 10/07/17 23:30 94 19 82/49 100 10/07/17 23:15 95 20 104/43 100 10/07/17 23:00 117 H 35 H 89/48 97 10/07/17 22:45 98 36 H 108/54 94 L 10/07/17 22:30 98 21 95/45 93 L 10/07/17 22:15 96 17 94/48 96 10/07/17 22:00 97.1 F L 34 H 112/55 96 10/07/17 21:16 97 F L 95 18 106/56 97 18 20:50 88/55 99 18 20:28 77 18 128/71 98 2018 19:47 93 20 111/55 98 18 19:07 92 16 89/51 96 18 18:30 92 16 107/55 91 L 18 18:00 88 18 88/50 99 2018 17:35 88 16 81/53 99 2018 17:00 90 18 78/50 94 L 18 16:30 90 20 76/47 79 L 10/07/17 16:00 94 20 84/50 85 L 10/07/17 15:41 95.9 F L 101 H 24 83/48 80 L Intake and Output 10/07/17 10/08/17 10/08/17 22:59 06:59 14:59 Intake Total 336.25 3178.437 3050 Output Total 193 237 Balance 336.25 2985.437 2813 Intake: IV 250 2800 1550 Dextrose 5% in Water 1, 500 000 ml @ 100 mls/hr IV . [id number] ONE with Sodium Bicarb (1 Meq/ml) 150 ml Rx#:[id number] Meropenem 1 gm In Sodium 100 100 Chloride 0.9% 100 ml @ 200 mls/hr IVPB Q8HR [facility] Rx#:[id number] Sodium Chloride 0.9% 1, 700 200 000 ml @ 100 mls/hr IV . Q10H [facility] Rx#:[id number] Sodium Chloride 0.9% 1, 2000 000 ml @ 999 mls/hr IV . Q1H1M ONE Rx#:[id number] Sodium Chloride 0.9% 500 500 ml @ 1000 mls/hr IV Q35M [facility] Rx#:[id number] Vancomycin 750 mg In 250 250 Sodium Chloride 0.9% 250 ml @ 125 mls/hr IVPB ONCE ONE Rx#:[id number] Intake, IV Titration 86.25 152.702 3418 Amount Norepinephrin 16 mg-0.9% 250.000 Ns Pmx 16 mg In 250 ml @ Titrate IV .Q0M [facility] Rx#: [id number] Norepinephrine 4 mg In 86.25 128.437 Dextrose 5% in Water 250 ml @ Titrate IV .Q0M [facility] Rx#:[id number] Sodium Chloride 0.9% 1, 1000 000 ml @ 999 mls/hr IV . Q1H1M ONE Rx#:[id number] Sodium Chloride 0.9% 500 500 ml @ 1000 mls/hr IV Q35M [facility] Rx#:[id number] Output: Urine 193 237 Other: Voiding Method Indwelling Catheter Indwelling Catheter Weight 52.5 kg 49.6 kg 49.6 kg Physical Exam: Revealed a 76-year-old female looks chronically ill, frail, not in respiratory distress, however she is presently on a nonrebreather mask. Head: Atraumatic, normocephalic. There is however sunken eyeballs, and facial oral wasting noted. HEENT:[Neck is supple.] [No neck masses.] [No thyromegaly.] [No JVD.] Very dry mucous membranes, no icterus. PERRLA, EOMI. Chest: [Diminished breath sounds at the bases no crackles or rhonchi or wheezes. Cardiac Exam: [Normal S1 and S2, no S3 gallop, no murmur.] Abdomen: [Soft, mild tenderness is noted especially in the right upper quadrant , no megaly, no rebound, no guarding, normal bowel sounds.] Extremities: [No clubbing, no edema, no cyanosis.] Neurological Exam: Lethargic, opens eyes only to verbal stimuli, but does not follow any instructions. Lymphatics: No lymphadenopathy. Musculoskeletal: Extreme muscle wasting noted, no limitation in range of motion. Skin: No rashes. Results - Laboratory Findings CBC and BMP: 10/08/17 05:10 10/08/17 05:10 ABG ABG pH 7.14 (7.35-7.45) L* 10/08/17 08:16 ABG pCO2 43 mmHg (35-45) 10/08/17 08:16 ABG pO2 132 mmHg (83-108) H 10/08/17 08:16 ABG O2 Saturation 99.0 % (94-97) H 10/08/17 08:16 PT/INR, D-dimer PT 16.2 sec (9.0-12.0) H 10/08/17 05:10 INR 1.8 (<1.2) H 10/08/17 05:10 Abnormal lab findings: Abnormal Labs 10/07/17 10/07/17 10/07/17 17:30 17:30 17:30 WBC Hct MCV 101.1 H MCHC RDW 19.9 H Plt Count 92 L Neutrophils # 8.6 H Lymphocytes # 0.3 L PT 16.9 H INR 1.9 H APTT 37.3 H ABG pH ABG pO2 ABG HCO3 ABG Total CO2 ABG O2 Saturation Chloride 109 H Carbon Dioxide 20 L BUN 99 H* Creatinine 1.71 H Glucose 106 H POC Glucose (mg/dL) Phosphorus Magnesium Total Bilirubin 7.7 H AST 288 H ALT 122 H Alkaline Phosphatase 659 H CK-MB (CK-2) Troponin I Total Protein 4.1 L Albumin 2.1 L Urine Protein Urine Bilirubin 10/07/17 10/07/17 10/07/17 17:30 18:00 21:48 WBC Hct MCV MCHC RDW Plt Count Neutrophils # Lymphocytes # PT INR APTT ABG pH ABG pO2 ABG HCO3 ABG Total CO2 ABG O2 Saturation Chloride Carbon Dioxide BUN Creatinine Glucose POC Glucose (mg/dL) 115 H Phosphorus Magnesium Total Bilirubin AST ALT Alkaline Phosphatase CK-MB (CK-2) 3.8 H* Troponin I 0.839 H* Total Protein Albumin Urine Protein Trace H Urine Bilirubin 2+ H 10/08/17 10/08/17 10/08/17 05:10 05:10 05:10 WBC 12.2 H Hct 51.7 H MCV 105.6 H MCHC 30.5 L RDW 20.2 H Plt Count 106 L Neutrophils # 8.9 H Lymphocytes # PT 16.2 H INR 1.8 H APTT 36.9 H ABG pH ABG pO2 ABG HCO3 ABG Total CO2 ABG O2 Saturation Chloride 114 H Carbon Dioxide 13 L BUN 91 H* Creatinine 1.50 H Glucose 156 H POC Glucose (mg/dL) Phosphorus 4.9 H Magnesium 2.5 H Total Bilirubin AST ALT Alkaline Phosphatase CK-MB (CK-2) Troponin I Total Protein Albumin Urine Protein Urine Bilirubin 10/08/17 10/08/17 10/08/17 05:10 06:07 08:16 WBC Hct MCV MCHC RDW Plt Count Neutrophils # Lymphocytes # PT INR APTT ABG pH 7.14 L* ABG pO2 132 H ABG HCO3 15 L ABG Total CO2 16 L ABG O2 Saturation 99.0 H Chloride Carbon Dioxide BUN Creatinine Glucose POC Glucose (mg/dL) 169 H Phosphorus Magnesium Total Bilirubin 8.6 H AST 309 H ALT 139 H Alkaline Phosphatase 782 H CK-MB (CK-2) Troponin I Total Protein Albumin Urine Protein Urine Bilirubin 10/08/17 11:53 WBC Hct MCV MCHC RDW Plt Count Neutrophils # Lymphocytes # PT INR APTT ABG pH ABG pO2 ABG HCO3 ABG Total CO2 ABG O2 Saturation Chloride Carbon Dioxide BUN Creatinine Glucose POC Glucose (mg/dL) 200 H Phosphorus Magnesium Total Bilirubin AST ALT Alkaline Phosphatase CK-MB (CK-2) Troponin I Total Protein Albumin Urine Protein Urine Bilirubin - Diagnostic Findings Additional studies: Chest x-ray, CT of the abdomen and pelvis were reviewed, please refer to findings as noted in HPI. Assessment and Plan Assessment: Impression: 1 acute hypovolemic shock, and septic shock. 2 profound hypotension secondary to dehydration and strongly suspect abdominal sepsis. 3 acute anion gap metabolic acidosis secondary to dehydration and sepsis. 4 severe medical debility and severe protein calorie malnutrition. 5 metastatic ovarian cancer 6 impending hypoxic respiratory failure, multifactorial secondary to above. 7 strongly doubt any pneumonia based on the chest x-ray findings, the findings are mostly findings of atelectasis but clinically no evidence of pneumonia. 8 acute kidney injury secondary to dehydration, hypovolemia and acute tubular necrosis secondary to hypotension Recommendation: IV fluids, empiric antibiotics, sodium bicarb drip, oxygen via nonrebreather mask, GI and DVT prophylaxis, surgical consultation, interventional radiology consultation, infectious disease consultation, will revisit the issue of CODE STATUS with the family again, the overall treatment picture seems to be very poor, may have to seriously consider readdressing the CODE STATUS with the family, I will continue to follow while in the intensive care unit. Critical care time is 40 minutes. Time with Patient: Greater than 30
[2017-10-08 15:24] LABS: Lactic Acid, Venous 2.3 mmol/L (0.7-2.0)
--- NOTE | 2017-10-08 15:51 | CONS ---
CONSULTATION DATE OF SERVICE: 10/08/2017. REASON FOR CONSULTATION: Abdominal abscess and sepsis. HISTORY OF PRESENT ILLNESS: The patient is a 76-year-old female with a past medical history significant for ovarian cancer for which the patient currently undergoing chemotherapy. The patient was brought into the ER at [facility] on 10/07/2017 with a chief complaint of generalized weakness, mental status changes, and decreased oral intake. Apparently has been getting worse over the last 1 week. Prior to that the patient was apparently doing well and was at her baseline. The patient was noted to be lying on the couch, herself. With these symptoms, the patient was brought to the ER and evaluated by the ER physician. On arrival to the ER, the patient has been hypothermic with a temperature of 95.9. She was hypertensive with a blood pressure of 65/46. Her white count initially was normal 9.6. Repeat is 12.2. The patient did have a UA that was negative. She did have a CT of abdomen and pelvis completed which did raise the possibility of a free fluid in the right perihepatic region as well as in the pelvis and complex right upper quadrant mass with a question of possible abscess. The patient did have an ultrasound of the gallbladder completed which shows heterogeneous liver suspicion for multiple liver masses. No ascites. Right kidney is small considered atrophy and no hydronephrosis with concern for possible abscess, she has been started on meropenem. She has been hypertensive requiring a pressor support. Cefepime was started previously and was discontinued. Infectious disease was consulted for further recommendation regarding antibiotic therapy. Most of the information has been obtained from prior review of the chart and talking to nursing staff as the patient is currently on 100% non-rebreather, unable to provide any history and no family member was available at the bedside. REVIEW OF SYSTEMS: Could not be reliably obtained though the positive points were mentioned in HPI. PAST MEDICAL HISTORY: Significant for ovarian cancer, history of lung cancer and asthma and COPD. PAST SURGICAL HISTORY: Cholecystectomy, hysterectomy and rectal surgery. SOCIAL HISTORY: Remote history of smoking. No drinking or drug use. FAMILY HISTORY: No pertinent findings noticed. ALLERGIES: To TYLENOL ASPIRIN AND CODEINE. MEDICATIONS: The patient is currently on Protonix, Levophed, Narcan, morphine sulfate, vancomycin pharmacy to dose and meropenem 1 g q.12 hours. EXAMINATION: Blood pressure is 97/40 with a pulse of 111, temperature of 98. She is 93% on non- rebreather. General description is an elderly female, lying in bed in no distress with no tachypnea or accessory muscles of respiration use. HEENT: Shows no pallor or scleral icterus. The oral mucosa membranes are dry. Neck: Trachea central. No thyromegaly. Lungs unlabored breathing. Clear to auscultation anteriorly. No wheeze or crackles. Heart S1, S2. Regular rate and rhythm. ABDOMEN: Soft, no tenderness. No guarding or rigidity. EXTREMITIES: No edema of the feet. Skin examination: No rash or mass palpable. Neurological: Patient is lethargic. Orientation could not be determined. LABS: Hemoglobin 15.2, white count of 12.2, BUN of 91, creatinine is 1.50. Liver enzymes are elevated with AST of 309, ALT is 139. Lactic acid was 2. Urine is negative. CT and ultrasound report as mentioned earlier. DIAGNOSTIC IMPRESSION AND PLAN: Patient admitted to the hospital with mental status changes, weakness and lethargy which is likely multifactorial with concern for possible liver abscess. The patient who does have a history of ovarian cancer with possible mets to the lung. The likely organism that needs to be covered will be the enteric gram-negative both aerobes and anaerobes and less likely gram-positive. PLAN: 1. Await family decision regarding aggressive care which including the patient going to the OR for drainage of this abscess versus . 2. If the patient goes to the OR, we will request culture both aerobic and anaerobic, at time of drainage of this abscess. 3. The patient will be treated with broad spectrum antibiotics in the form of meropenem and vancomycin while waiting for the clinical condition to stabilize and cultures to finalize. 4. We will follow up on clinical condition as well as cultures to further adjust medication if needed. Thank you for this consultation. Overall prognosis remains to be guarded. MMODL / IJN: [id number] /
[2017-10-08] MEDS: MORPHINE SULFATE 2 MG/ML SYRINGE IVP PRN (16:05)
--- NOTE | 2017-10-08 16:25 | P.HPIM ---
History of Present Illness Patient was in the ICU, she was confused and could not contribute to the history. Information taken from medical records and staff This is a 76-year-old female with history of metastatic ovarian cancer, undergoing chemotherapy brought into the ER yesterday with generalized weakness. Patient has been confused, she had no oral intake for a number of days, patient is apparently undergoing extensive chemotherapy for ovarian cancer. And over the last 7 days, patient has been getting weaker, unable to eat, confused, unable to walk, and basically going downhill steadily. Patient has been laying on the couch, soiling herself and unable to get to the bathroom. Upon arrival to the ER, the patient was profoundly hypotensive and dehydrated. Patient was given multiple boluses of fluids, a central line was placed by the ER physician, and she was placed on norepinephrine presently at 40 mcg/m. Since admission last night, the patient was given more fluid boluses , and her urine output remains marginal, blood pressure remains relatively low. ABG this morning showed a pO2 of 132 pH of 7.14 and pCO2 of 43. CBC is relatively normal. CT of the abdomen and pelvis showed significant abnormalities there is a large liver, free fluid noted around the liver, there is also a 96 cm thick walled cystic fluid collection in the right upper quadrant just below the right lobe of the liver from air in the medial at anterior aspect of the mass. The right upper quadrant mass was felt to be complex in nature, and the possibility of abscess was raised. However when the interventional radiologist was consulted for possible subcutaneous drainage, he felt that this is likely a metastatic mass in the right upper quadrant rather than being an abscess. General surgery was consulted, and felt that the patient is not a candidate for any surgical intervention at this point. At this point patient was placed on antibiotics empirically, infectious disease consult patient was initiated, patient has ALLERGIES to multiple medications, and her overall clinical status seems extremely poor at this point. CODE STATUS is full code at this point according to her son and daughter. These were previously expressed patient's wishes according to the children. The patient is confused, she is unable to give any history, she is moaning and groaning in bed, and she was placed on sodium bicarb drip for anion gap metabolic acidosis. And she is presently on non-rebreather mask with a pO2 of 132 Review of Systems N/a Past Medical History Past Medical History: Asthma, COPD Additional Past Medical History / Comment(s): ovarian cancer, lung CA History of Any Multi-Drug Resistant Organisms: None Reported Past Surgical History: Cholecystectomy, Hysterectomy Additional Past Surgical History / Comment(s): rectal surgery. Past Anesthesia/Blood Transfusion Reactions: No Reported Reaction Past Psychological History: No Psychological Hx Reported Smoking Status: Former smoker Past Alcohol Use History: None Reported Past Drug Use History: None Reported Medications and Allergies Home Medications Medication Instructions Recorded Confirmed Type No Known Home Medications 10/07/17 10/07/17 History Allergies Allergy/AdvReac Type Severity Reaction Status Date / Time acetaminophen [From Tylenol] Allergy Unknown Verified 10/07/17 16:39 aspirin Allergy Unknown Verified 10/07/17 16:39 codeine Allergy Unknown Verified 10/07/17 16:39 Corticosteroids Allergy Unknown Verified 10/07/17 16:39 (Glucocorticoids) diphenhydramine HCl Allergy Unknown Verified 10/07/17 16:39 [From Benadryl] epinephrine Allergy Unknown Verified 10/07/17 16:39 ibuprofen [From Motrin] Allergy Rash/Hives Verified 10/07/17 16:39 iodine Allergy Unknown Verified 10/07/17 16:39 lidocaine HCl Allergy Unknown Verified 10/07/17 16:39 [From Xylocaine] Penicillins Allergy Unknown Verified 10/07/17 16:39 Physical Exam Vitals: Vital Signs Temp Pulse Resp BP Pulse Ox 10/08/17 16:00 97.5 F L 22 97/42 95 10/08/17 15:45 21 98/50 84 L 10/08/17 15:30 101 H 21 100/44 98 10/08/17 15:15 118 H 19 101/51 97 10/08/17 15:00 169 H 22 95/41 94 L 10/08/17 14:45 114 H 20 95/43 97 10/08/17 14:30 139 H 19 80/40 96 10/08/17 14:15 111 H 17 97/40 95 10/08/17 14:00 96 16 99/39 93 L 10/08/17 13:45 106 H 23 99/42 95 10/08/17 13:30 103 H 20 95/40 97 10/08/17 13:15 93 16 94/42 97 10/08/17 13:00 95 17 95/45 97 10/08/17 12:45 115 H 19 106/45 100 10/08/18 12:30 135 H 18 106/44 98 07/21/18 12:15 99 17 98/41 97 10/08/18 12:00 98.0 F 103 H 25 H 113/46 97 07//18 11:45 111 H 25 H 108/49 94 L //18 11:30 103 H 18 97/55 93 L //18 11:15 112 H 23 103/47 92 L 10/08/18 11:00 106 H 42 H 95/50 91 L 07//18 10:45 101 H 18 104/50 93 L //18 10:30 112 H 34 H 111/43 91 L //18 10:15 130 H 29 H 113/46 88 L //18 10:00 123 H 27 H 105/57 94 L //18 09:45 108 H 19 105/46 90 L //18 09:30 108 H 26 H 93/46 93 L 10/08/18 09:15 110 H 28 H 96/50 96 //18 09:00 103 H 30 H 99/44 98 //18 08:45 102 H 23 104/50 97 //18 08:30 104 H 34 H 119/50 86 L 10/08/18 08:15 97.6 F 100 28 H 107/60 81 L 07//18 08:00 103 H 26 H 114/58 99 07//18 07:45 100 43 H 111/67 86 L 10/08/18 07:30 113 H 35 H 111/49 95 10/08/18 07:15 100 17 110/50 07/18 07:00 101 H 37 H 106/54 87 L 07//18 06:45 107 H 26 H 103/45 92 L 07/21/18 06:30 104 H 31 H 102/52 81 L 07/21/18 06:15 99 23 103/45 98 //18 06:00 106 H 24 103/46 92 L //18 05:45 107 H 27 H 113/53 95 /21/18 05:30 104 H 39 H 107/56 93 L 07/21/18 05:15 104 H 40 H 114/47 96 //18 05:00 103 H 25 H 105/59 98 10/08/17 04:45 103 H 24 109/88 99 10/08/17 04:30 126 H 30 H 83/48 98 10/08/17 04:15 106 H 17 100/49 96 10/08/17 04:00 97.5 F L 104 H 19 107/52 96 10/08/17 03:45 108 H 27 H 107/55 98 10/08/17 03:30 107 H 20 106/51 89 L 10/08/17 03:15 107 H 31 H 100/46 89 L 10/08/17 03:00 106 H 32 H 100/50 82 L 10/08/17 02:45 107 H 24 96/59 100 10/08/17 02:30 107 H 16 108/52 99 10/08/17 02:15 103 H 17 93/48 99 10/08/17 02:00 107 H 27 H 113/50 98 10/08/17 01:45 105 H 18 129/56 95 10/08/17 01:30 101 H 35 H 97/55 96 10/08/17 01:15 101 H 19 107/85 95 10/08/17 01:00 97 17 110/69 91 L 10/08/17 00:45 91 18 106/77 91 L 10/08/17 00:30 97.4 F L 94 18 84/47 100 10/08/17 00:15 92 25 H 84/38 98 10/08/17 00:00 109 H 23 65/46 92 L 10/07/17 23:45 102 H 27 H 80/42 100 10/07/17 23:30 94 19 82/49 100 10/07/17 23:15 95 20 104/43 100 10/07/17 23:00 117 H 35 H 89/48 97 18 22:45 98 36 H 108/54 94 L 10/07/17 22:30 98 21 95/45 93 L 10/07/17 22:15 96 17 94/48 96 10/07/17 22:00 97.1 F L 34 H 112/55 96 10/07/17 21:16 97 F L 95 18 106/56 97 10/07/17 20:50 88/55 99 10/07/17 20:28 77 18 128/71 98 10/07/17 19:47 93 20 111/55 98 10/07/17 19:07 92 16 89/51 96 10/07/17 18:30 92 16 107/55 91 L 10/07/17 18:00 88 18 88/50 99 10/07/17 17:35 88 16 81/53 99 10/07/17 17:00 90 18 78/50 94 L 10/07/17 16:30 90 20 76/47 79 L Intake and Output 10/08/17 10/08/17 10/08/17 06:59 14:59 22:59 Intake Total 3178.437 3050 200 Output Total 193 237 85 Balance 2985.437 2813 115 Intake: IV 2800 1550 200 Dextrose 5% in Water 1, 500 200 000 ml @ 100 mls/hr IV . [id number] ONE with Sodium Bicarb (1 Meq/ml) 150 ml Rx#:[id number] Meropenem 1 gm In Sodium 100 100 Chloride 0.9% 100 ml @ 200 mls/hr IVPB Q8HR [facility] Rx#:[id number] Sodium Chloride 0.9% 1, 700 200 000 ml @ 100 mls/hr IV . Q10H [facility] Rx#:[id number] Sodium Chloride 0.9% 1, 2000 000 ml @ 999 mls/hr IV . Q1H1M ONE Rx#:[id number] Sodium Chloride 0.9% 500 500 ml @ 1000 mls/hr IV Q35M [facility] Rx#:[id number] Vancomycin 750 mg In 250 Sodium Chloride 0.9% 250 ml @ 125 mls/hr IVPB ONCE ONE Rx#:[id number] Intake, IV Titration 701.909 3361 Amount Norepinephrin 16 mg-0.9% 250.000 Ns Pmx 16 mg In 250 ml @ Titrate IV .Q0M [facility] Rx#: [id number] Norepinephrine 4 mg In 128.437 Dextrose 5% in Water 250 ml @ Titrate IV .Q0M ONE Rx#:[id number] Sodium Chloride 0.9% 1, 1000 000 ml @ 999 mls/hr IV . Q1H1M ONE Rx#:[id number] Sodium Chloride 0.9% 500 500 ml @ 1000 mls/hr IV Q35M [facility] Rx#:[id number] Output: Urine 193 237 85 Other: Voiding Method Indwelling Catheter Indwelling Catheter Weight 49.6 kg 49.6 kg 55.1 kg GENERAL: He is nonresponsive, not in any acute distress. Well developed, well nourished. HEENT: Pupils are round and equally reacting to light. EOMI. No scleral icterus. No conjunctival pallor. Normocephalic, atraumatic. No pharyngeal erythema. No thyromegaly. CARDIOVASCULAR: S1 and S2 present. No murmurs, rubs, or gallops. PULMONARY: Chest is clear to auscultation, no wheezing or crackles. ABDOMEN: Soft, nontender, nondistended, normoactive bowel sounds. No palpable organomegaly. MUSCULOSKELETAL: No joint swelling or deformity. EXTREMITIES: No cyanosis, clubbing, or pedal edema. NEUROLOGICAL: Gross neurological examination did not reveal any focal deficits. SKIN: No rashes. Results CBC & Chem 7: 10/08/17 05:10 10/08/17 05:10 Labs: Abnormal Lab Results - Last 24 Hours (Table) 10/07/17 10/07/17 10/07/17 Range/Units 17:30 17:30 17:30 WBC (3.8-10.6) k/uL Hct (34.0-46.0) % MCV 101.1 H (80.0-100.0) fL MCHC (31.0-37.0) g/dL RDW 19.9 H (11.5-15.5) % Plt Count 92 L (150-450) k/uL Neutrophils # 8.6 H (1.3-7.7) k/uL Lymphocytes # 0.3 L (1.0-4.8) k/uL PT 16.9 H (9.0-12.0) sec INR 1.9 H (<1.2) APTT 37.3 H (22.0-30.0) sec ABG pH (7.35-7.45) ABG pO2 (83-108) mmHg ABG HCO3 (21-25) mmol/L ABG Total CO2 (19-24) mmol/L ABG O2 Saturation (94-97) % Chloride 109 H (98-107) mmol/L Carbon Dioxide 20 L (22-30) mmol/L BUN 99 H* (7-17) mg/dL Creatinine 1.71 H (0.52-1.04) mg/dL Glucose 106 H (74-99) mg/dL POC Glucose (mg/dL) (75-99) mg/dL Plasma Lactic Acid Stalin (0.7-2.0) mmol/L Phosphorus (2.5-4.5) mg/dL Magnesium (1.6-2.3) mg/dL Total Bilirubin 7.7 H (0.2-1.3) mg/dL AST 288 H (14-36) U/L ALT 122 H (9-52) U/L Alkaline Phosphatase 659 H (38-126) U/L Ammonia (<30) umol/L CK-MB (CK-2) (0.0-2.4) ng/mL Troponin I (0.000-0.034) ng/mL Total Protein 4.1 L (6.3-8.2) g/dL Albumin 2.1 L (3.5-5.0) g/dL Urine Protein (Negative) Urine Bilirubin (Negative) 10/07/17 10/07/17 10/07/17 Range/Units 17:30 18:00 21:48 WBC (3.8-10.6) k/uL Hct (34.0-46.0) % MCV (80.0-100.0) fL MCHC (31.0-37.0) g/dL RDW (11.5-15.5) % Plt Count (150-450) k/uL Neutrophils # (1.3-7.7) k/uL Lymphocytes # (1.0-4.8) k/uL PT (9.0-12.0) sec INR (<1.2) APTT (22.0-30.0) sec ABG pH (7.35-7.45) ABG pO2 (83-108) mmHg ABG HCO3 (21-25) mmol/L ABG Total CO2 (19-24) mmol/L ABG O2 Saturation (94-97) % Chloride (98-107) mmol/L Carbon Dioxide (22-30) mmol/L BUN (7-17) mg/dL Creatinine (0.52-1.04) mg/dL Glucose (74-99) mg/dL POC Glucose (mg/dL) 115 H (75-99) mg/dL Plasma Lactic Acid Stalin (0.7-2.0) mmol/L Phosphorus (2.5-4.5) mg/dL Magnesium (1.6-2.3) mg/dL Total Bilirubin (0.2-1.3) mg/dL AST (14-36) U/L ALT (9-52) U/L Alkaline Phosphatase (38-126) U/L Ammonia (<30) umol/L CK-MB (CK-2) 3.8 H* (0.0-2.4) ng/mL Troponin I 0.839 H* (0.000-0.034) ng/mL Total Protein (6.3-8.2) g/dL Albumin (3.5-5.0) g/dL Urine Protein Trace H (Negative) Urine Bilirubin 2+ H (Negative) 10/08/17 10/08/17 10/08/17 Range/Units 05:10 05:10 05:10 WBC 12.2 H (3.8-10.6) k/uL Hct 51.7 H (34.0-46.0) % MCV 105.6 H (80.0-100.0) fL MCHC 30.5 L (31.0-37.0) g/dL RDW 20.2 H (11.5-15.5) % Plt Count 106 L (150-450) k/uL Neutrophils # 8.9 H (1.3-7.7) k/uL Lymphocytes # (1.0-4.8) k/uL PT 16.2 H (9.0-12.0) sec INR 1.8 H (<1.2) APTT 36.9 H (22.0-30.0) sec ABG pH (7.35-7.45) ABG pO2 (83-108) mmHg ABG HCO3 (21-25) mmol/L ABG Total CO2 (19-24) mmol/L ABG O2 Saturation (94-97) % Chloride 114 H (98-107) mmol/L Carbon Dioxide 13 L (22-30) mmol/L BUN 91 H* (7-17) mg/dL Creatinine 1.50 H (0.52-1.04) mg/dL Glucose 156 H (74-99) mg/dL POC Glucose (mg/dL) (75-99) mg/dL Plasma Lactic Acid Stalin (0.7-2.0) mmol/L Phosphorus 4.9 H (2.5-4.5) mg/dL Magnesium 2.5 H (1.6-2.3) mg/dL Total Bilirubin (0.2-1.3) mg/dL AST (14-36) U/L ALT (9-52) U/L Alkaline Phosphatase (38-126) U/L Ammonia (<30) umol/L CK-MB (CK-2) (0.0-2.4) ng/mL Troponin I (0.000-0.034) ng/mL Total Protein (6.3-8.2) g/dL Albumin (3.5-5.0) g/dL Urine Protein (Negative) Urine Bilirubin (Negative) 10/08/17 10/08/17 10/08/17 Range/Units 05:10 06:07 08:16 WBC (3.8-10.6) k/uL Hct (34.0-46.0) % MCV (80.0-100.0) fL MCHC (31.0-37.0) g/dL RDW (11.5-15.5) % Plt Count (150-450) k/uL Neutrophils # (1.3-7.7) k/uL Lymphocytes # (1.0-4.8) k/uL PT (9.0-12.0) sec INR (<1.2) APTT (22.0-30.0) sec ABG pH 7.14 L* (7.35-7.45) ABG pO2 132 H (83-108) mmHg ABG HCO3 15 L (21-25) mmol/L ABG Total CO2 16 L (19-24) mmol/L ABG O2 Saturation 99.0 H (94-97) % Chloride (98-107) mmol/L Carbon Dioxide (22-30) mmol/L BUN (7-17) mg/dL Creatinine (0.52-1.04) mg/dL Glucose (74-99) mg/dL POC Glucose (mg/dL) 169 H (75-99) mg/dL Plasma Lactic Acid Stalin (0.7-2.0) mmol/L Phosphorus (2.5-4.5) mg/dL Magnesium (1.6-2.3) mg/dL Total Bilirubin 8.6 H (0.2-1.3) mg/dL AST 309 H (14-36) U/L ALT 139 H (9-52) U/L Alkaline Phosphatase 782 H (38-126) U/L Ammonia (<30) umol/L CK-MB (CK-2) (0.0-2.4) ng/mL Troponin I (0.000-0.034) ng/mL Total Protein (6.3-8.2) g/dL Albumin (3.5-5.0) g/dL Urine Protein (Negative) Urine Bilirubin (Negative) 10/08/17 10/08/17 Range/Units 11:53 14:33 WBC (3.8-10.6) k/uL Hct (34.0-46.0) % MCV (80.0-100.0) fL MCHC (31.0-37.0) g/dL RDW (11.5-15.5) % Plt Count (150-450) k/uL Neutrophils # (1.3-7.7) k/uL Lymphocytes # (1.0-4.8) k/uL PT (9.0-12.0) sec INR (<1.2) APTT (22.0-30.0) sec ABG pH (7.35-7.45) ABG pO2 (83-108) mmHg ABG HCO3 (21-25) mmol/L ABG Total CO2 (19-24) mmol/L ABG O2 Saturation (94-97) % Chloride (98-107) mmol/L Carbon Dioxide (22-30) mmol/L BUN (7-17) mg/dL Creatinine (0.52-1.04) mg/dL Glucose (74-99) mg/dL POC Glucose (mg/dL) 200 H (75-99) mg/dL Plasma Lactic Acid Stalin 2.3 H* (0.7-2.0) mmol/L Phosphorus (2.5-4.5) mg/dL Magnesium (1.6-2.3) mg/dL Total Bilirubin (0.2-1.3) mg/dL AST (14-36) U/L ALT (9-52) U/L Alkaline Phosphatase (38-126) U/L Ammonia 48 H (<30) umol/L CK-MB (CK-2) (0.0-2.4) ng/mL Troponin I (0.000-0.034) ng/mL Total Protein (6.3-8.2) g/dL Albumin (3.5-5.0) g/dL Urine Protein (Negative) Urine Bilirubin (Negative) Microbiology - Last 24 Hours (Table) 10/07/17 18:00 Urine Culture - Preliminary Urine,Voided Thrombosis Risk Factor Assmnt - Choose All That Apply Any of the Below Risk Factors Present?: Yes Each Factor Represents 1 point: Medical pt on bed rest, Sepsis (< 1month) Other Risk Factors: Yes Each Risk Factor Represents 2 Points: Central venous access, Malignancy Each Risk Factor Represents 3 Points: Age 75 years or older Thrombosis Risk Factor Assessment Total Risk Factor Score: 9 Thrombosis Risk Factor Assessment Level: High Risk Assessment and Plan Assessment: Septic shock, on table fit Possible liver abscess versus liver metastases history of ovarian cancer, actively patient getting chemotherapy Possible metastatic disease Dehydration Metabolic encephalopathy Acute kidney injury, and review of shock and hypovolemia Positive troponins Plan: Patient was admitted to the intensive care unit from [facility] with septic shock , she needs pressors. Continue with the same treatment. Continue symptomatic treatment. As per intensive care unit specialist who are following the patient. Surgical team has been consulted: Patient is not a candidate for surgical intervention. She is currently on meropenem And vancomycin X1. Continue with IV fluids. Monitor vitals and lytes, and culture results. Further recommendations based on the clinical course of the patient's. Patient with elevated troponin of 0.8, call cardiology consult: Pending Prognosis is guarded given the severity and complexity of her medical comorbidities Time with Patient: Greater than 30
[2017-10-08 18:06] LABS: Glucose,Whole Blood 216 mg/dL (75-99)
[2017-10-08] MEDS ORDERED: INSULIN ASPART 100 UNIT/ML 1 ML 10 ML VIAL SQ STA (18:55)
[2017-10-08 20:26] LABS: Glucose,Whole Blood 188 mg/dL (75-99)
[2017-10-08] MEDS: NOREPINEPHRINE 16 MG in DEXTROSE 5% IN WATER 250 ML IV SCH ×2 (20:26)
[2017-10-08] MEDS: INSULIN ASPART 100 UNIT/ML 1 ML 10 ML VIAL SQ SCH (20:48)
[2017-10-09] MEDS: INSULIN ASPART 100 UNIT/ML 1 ML 10 ML VIAL SQ SCH ×3 (01:10→08:59)
[2017-10-09] MEDS: MORPHINE SULFATE 2 MG/ML SYRINGE IVP PRN ×2 (03:01→08:54)
[2017-10-09] MEDS: NOREPINEPHRINE 16 MG in DEXTROSE 5% IN WATER 250 ML IV SCH ×2 (04:00)
[2017-10-09 04:14] LABS: Glucose,Whole Blood 140 mg/dL (75-99)
[2017-10-09 04:33] LABS: Calcium 8.3 mg/dL (8.4-10.2); Magnesium 2.1 mg/dL (1.6-2.3); Phosphorus 4.3 mg/dL (2.5-4.5)
[2017-10-09 04:38] LABS: Vancomycin,Random 7.8 ug/mL
[2017-10-09 04:40] LABS: Anisocytosis Moderate; HCT 44.9 % (34.0-46.0); HGB 13.4 gm/dL (11.4-16.0); MCH 31.6 pg (25.0-35.0); MCV 105.6 fL (80.0-100.0); Macrocytosis Marked; Mean Platelet Volume 8.9; RBC 4.25 m/uL (3.80-5.40); RDW 20.7 % (11.5-15.5)
[2017-10-09 05:05] LABS: Platelet Count 96 k/uL (150-450)
[2017-10-09 05:08] LABS: Band Neutrophils % 1 %; Neutrophils % (M) 90 %; Nucleated Red Blood Cells 3 /100 WBC (0-0); Total Cells Counted 200
[2017-10-09 05:09] LABS: Lymphocytes # (M) 0.47 k/uL (1.0-4.8); Toxic Granulation Present; WBC 11.7 k/uL (3.8-10.6)
[2017-10-09 05:10] LABS: Hypochromasia Marked; Poikilocytosis Slight
--- NOTE | 2017-10-09 07:11 | XR ---
EXAMINATION TYPE: XR chest 1V DATE OF EXAM: 10/09/2017 HISTORY: resp distress. REFERENCE: Previous study dated 10/08/2017. FINDINGS: A right internal jugular catheter remains in place. Its tip is at the cavoatrial junction. There is worsening right middle lobe collapse. There are bilateral effusions. Heart size is obscured. There is underlying COPD. IMPRESSION: 1. WORSENING RIGHT BASILAR AIRSPACE DISEASE. 2. BILATERAL EFFUSIONS. 3. UNDERLYING COPD.
[2017-10-09] MEDS ORDERED: SODIUM CHLORIDE 0.9% 1,000 ML IV ONE (08:20)
[2017-10-09 08:21] LABS: Glucose,Whole Blood 103 mg/dL (75-99)
[2017-10-09 08:25] LABS: ABG Base Excess -5.7 mmol/L; ABG HCO3 23 mmol/L (21-25); ABG Oxygen Saturation 96.9 % (94-97); ABG PCO2 62 mmHg (35-45); ABG PO2 88 mmHg (83-108); ABG TCO2 25 mmol/L (19-24)
[2017-10-09 08:27] LABS: ABG PH 7.17 (7.35-7.45)
[2017-10-09] MEDS: PANTOPRAZOLE 40 MG/10 ML VIAL IV SCH (08:54)
[2017-10-09] MEDS ORDERED: DEXTROSE 5% IN WATER 1,000 ML with SODIUM BICARB (1 MEQ/ML) 150 ML IV SCH (09:00)
--- NOTE | 2017-10-09 09:07 | P.PN ---
Progress Note - Text Progress Note Date: 10/09/17 The patient was made DO NOT RESUSCITATE yesterday. Apparently she will be made comfort care today. We will sign off.
[2017-10-09] MEDS ORDERED: MORPHINE SULFATE 4 MG/ML SYRINGE IV PRN (09:31)
[2017-10-09] MEDS ORDERED: MORPHINE SULFATE 2 MG/ML SYRINGE IV PRN (09:31)
--- NOTE | 2017-10-09 09:58 | CONS ---
CONSULTATION Mrs Nair is a 76-year-old female with a history of malignancy with metastatic ovarian cancer, underwent chemotherapy, who was brought in because of confusion and suggestion of sepsis, hypotension, severe weakness. Cardiology consultation was requested because of her overall status. The patient is on the BiPAP at this time, not responsive to verbal stimuli, on large dose of Levophed with low urine output. According to the nursing staff, the patient is a DNR at this time and she will be further evaluated by Dr. Gomez for code status and possible comfort care only. I do not have at this time any other history. According to the nursing staff, there is no history of cardiac disease. She had no malignant arrhythmia on the monitor. The patient has a past medical history remarkable for the ovarian cancer, lung CA. She is status post cholecystectomy and hysterectomy. REVIEW OF SYSTEMS: Could not be obtained at this time. PHYSICAL EXAMINATION: She is a 76-year-old female, acutely ill, not responsive. Blood pressure 92/40 with a heart rate in the one teens in sinus tachycardia. HEAD: Normocephalic. Neck: No bruit appreciated. Intrajugular catheter noted on the right side. LUNGS: Clear to auscultation anteriorly. Heart tachycardic, S1, S2. No S3. No rub. ABDOMEN: Soft. No organomegaly. Hypoactive bowel sounds. Extremities trace edema, cold. LAB DATA: Lab data revealed a white blood cells 12.2, hemoglobin of 15.8. INR of 1.8. BUN and creatinine 91 and 1.5, magnesium of 2.5, total bilirubin of 8.6. Troponin of 0.839. EKG revealed sinus tachycardia, left axis deviation. an inferior wall myocardial infarction. IMPRESSION: 1. Sepsis. 2. Shock could be related to hypovolemia or septic shock. 3. Malignancy with metastasis. 4. Minimal elevation of troponin representing a type 2 event. 5. Renal failure, multifactorial. RECOMMENDATION: From the cardiac standpoint, I do not recommend any aggressive workup. There is no active cardiac issue at this time. We will await further input from the Critical Care Service. Thank you for this consult. MMODL / IJN: [id number] /
[2017-10-09] MEDS ORDERED: MORPHINE SULFATE (100 MG/2 ML) 100 MG in SODIUM CHLORIDE 0.9% 100 ML IV SCH (10:00)
--- NOTE | 2017-10-09 10:58 | P.CONS ---
History of Present Illness - Reason for Consult Consult date: 10/08/17 Lung cancer Requesting physician: Chevy Franklin - Chief Complaint Weakness - History of Present Illness Ms. 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 She was found to have her lung cancer and initial staging PET showed a questionable lesion in T8, which could be inflammatory, otherwise a 9 cm lung lesion. She completed chemotherapy with post treatment PET showing significant response. She subsequently underwent RT to the lung. MRI brain remained negative, and she then underwent prophylactic WBRT, which she completed 08/11/17. She did follow up with Rad Onc on 09/14/17 at which time she was starting to decline. She has not had any scans since 04/2017, after completing her chemotherapy, which was negative. She presents now with increasing weakness, lethargy, and septic shock. Minimal urine output, although creatinine not significantly elevated. She continues to deteriorate despite antibiotics and aggressive hydration, and continues to require high dose levophed with borderline MAPS. She had a CT AP without contrast that showed a liver lesion described as possible abscess. She subsequently underwent abdominal US, which showed several liver lesions suggestive of liver met's. She currently is unresponsive, and family at bedside. Review of Systems All systems: negative Constitutional: Reports as per HPI Past Medical History Past Medical History: Asthma, COPD Additional Past Medical History / Comment(s): ovarian cancer, lung CA History of Any Multi-Drug Resistant Organisms: None Reported Past Surgical History: Cholecystectomy, Hysterectomy Additional Past Surgical History / Comment(s): rectal surgery. Past Anesthesia/Blood Transfusion Reactions: No Reported Reaction Past Psychological History: No Psychological Hx Reported Smoking Status: Former smoker Past Alcohol Use History: None Reported Past Drug Use History: None Reported Medications and Allergies Home Medications Medication Instructions Recorded Confirmed Type No Known Home Medications 10/07/17 10/07/17 History Allergies Allergy/AdvReac Type Severity Reaction Status Date / Time acetaminophen [From Tylenol] Allergy Unknown Verified 10/07/17 16:39 aspirin Allergy Unknown Verified 10/07/17 16:39 codeine Allergy Unknown Verified 10/07/17 16:39 Corticosteroids Allergy Unknown Verified 10/07/17 16:39 (Glucocorticoids) diphenhydramine HCl Allergy Unknown Verified 10/07/17 16:39 [From Benadryl] epinephrine Allergy Unknown Verified 10/07/17 16:39 ibuprofen [From Motrin] Allergy Rash/Hives Verified 10/07/17 16:39 iodine Allergy Unknown Verified 10/07/17 16:39 lidocaine HCl Allergy Unknown Verified 10/07/17 16:39 [From Xylocaine] Penicillins Allergy Unknown Verified 10/07/17 16:39 Physical Exam Vitals: Vital Signs Temp Pulse Resp BP Pulse Ox 10/08/17 21:00 97 14 88/40 97 10/08/17 20:45 96 14 93/46 96 10/08/17 20:30 94 16 92/44 97 10/08/17 20:15 94 13 103/40 94 L 10/08/17 20:00 98.6 F 90 14 93/44 97 10/08/17 19:45 90 12 94/40 97 10/08/17 19:30 92 14 98/44 97 10/08/17 19:27 97 10/08/17 19:15 110 H 14 91/43 97 10/08/17 19:00 91 12 92/45 97 10/08/17 18:45 94 11 L 95/45 96 10/08/17 18:30 100 18 96/42 98 10/08/17 18:15 93 13 93/41 98 10/08/17 18:00 201 H 12 86/38 98 18 17:45 147 H 15 86/36 98 10/08/17 17:30 142 H 13 83/40 98 10/08/17 17:15 160 H 14 82/38 96 10/08/17 17:00 103 H 14 95/39 96 10/08/17 16:45 99 14 97/43 96 10/08/17 16:30 71 16 96/45 95 10/08/17 16:15 79 17 95/43 95 10/08/17 16:00 97.5 F L 22 97/42 95 10/08/17 15:45 21 98/50 84 L 10/08/17 15:30 101 H 21 100/44 98 10/08/17 15:15 118 H 19 101/51 97 10/08/17 15:00 169 H 22 95/41 94 L 18 14:45 114 H 20 95/43 97 10/08/18 14:30 139 H 19 80/40 96 10/08/18 14:15 111 H 17 97/40 95 18 14:00 96 16 99/39 93 L 18 13:45 106 H 23 99/42 95 18 13:30 103 H 20 95/40 97 18 13:15 93 16 94/42 97 18 13:00 95 17 95/45 97 18 12:45 115 H 19 106/45 100 18 12:30 135 H 18 106/44 98 18 12:15 99 17 98/41 97 10/08/17 12:00 98.0 F 103 H 25 H 113/46 97 18 11:45 111 H 25 H 108/49 94 L 18 11:30 103 H 18 97/55 93 L 10/08/17 11:15 112 H 23 103/47 92 L 18 11:00 106 H 42 H 95/50 91 L 18 10:45 101 H 18 104/50 93 L 18 10:30 112 H 34 H 111/43 91 L 18 10:15 130 H 29 H 113/46 88 L 18 10:00 123 H 27 H 105/57 94 L 18 09:45 108 H 19 105/46 90 L 18 09:30 108 H 26 H 93/46 93 L 18 09:15 110 H 28 H 96/50 96 10/08/18 09:00 103 H 30 H 99/44 98 10/08/18 08:45 102 H 23 104/50 97 10/08/18 08:30 104 H 34 H 119/50 86 L 10/08/18 08:15 97.6 F 100 28 H 107/60 81 L 07/18 08:00 103 H 26 H 114/58 99 10/08/18 07:45 100 43 H 111/67 86 L 07//18 07:30 113 H 35 H 111/49 95 10/08/18 07:15 100 17 110/50 07/21/18 07:00 101 H 37 H 106/54 87 L 10/08/17 06:45 107 H 26 H 103/45 92 L 10/08/17 06:30 104 H 31 H 102/52 81 L 10/08/17 06:15 99 23 103/45 98 10/08/17 06:00 106 H 24 103/46 92 L 10/08/17 05:45 107 H 27 H 113/53 95 10/08/17 05:30 104 H 39 H 107/56 93 L 10/08/17 05:15 104 H 40 H 114/47 96 10/08/17 05:00 103 H 25 H 105/59 98 10/08/17 04:45 103 H 24 109/88 99 10/08/17 04:30 126 H 30 H 83/48 98 10/08/17 04:15 106 H 17 100/49 96 10/08/17 04:00 97.5 F L 104 H 19 107/52 96 10/08/17 03:45 108 H 27 H 107/55 98 10/08/17 03:30 107 H 20 106/51 89 L 10/08/17 03:15 107 H 31 H 100/46 89 L 10/08/17 03:00 106 H 32 H 100/50 82 L 10/08/17 02:45 107 H 24 96/59 100 10/08/17 02:30 107 H 16 108/52 99 10/08/17 02:15 103 H 17 93/48 99 10/08/17 02:00 107 H 27 H 113/50 98 10/08/17 01:45 105 H 18 129/56 95 10/08/17 01:30 101 H 35 H 97/55 96 10/08/17 01:15 101 H 19 107/85 95 10/08/17 01:00 97 17 110/69 91 L 10/08/17 00:45 91 18 106/77 91 L 10/08/17 00:30 97.4 F L 94 18 84/47 100 10/08/17 00:15 92 25 H 84/38 98 10/08/17 00:00 109 H 23 65/46 92 L 10/07/17 23:45 102 H 27 H 80/42 100 10/07/17 23:30 94 19 82/49 100 10/07/17 23:15 95 20 104/43 100 07/20/18 23:00 117 H 35 H 89/48 97 10/07/17 22:45 98 36 H 108/54 94 L Intake and Output 10/08/17 10/08/17 10/08/17 06:59 14:59 22:59 Intake Total 3178.437 3050 1740 Output Total 193 237 263 Balance 2985.437 2813 1477 Intake: IV 2800 1550 1700 Dextrose 5% in Water 1, 500 700 000 ml @ 100 mls/hr IV . [id number] ONE with Sodium Bicarb (1 Meq/ml) 150 ml Rx#:[id number] Meropenem 1 gm In Sodium 100 100 Chloride 0.9% 100 ml @ 200 mls/hr IVPB Q8HR [facility] Rx#:[id number] Sodium Chloride 0.9% 1, 700 200 000 ml @ 100 mls/hr IV . Q10H [facility] Rx#:[id number] Sodium Chloride 0.9% 1, 2000 000 ml @ 999 mls/hr IV . Q1H1M [facility] Rx#:[id number] Sodium Chloride 0.9% 1, 1000 000 ml @ 999 mls/hr IV . Q1H1M [facility] Rx#:[id number] Sodium Chloride 0.9% 500 500 ml @ 1000 mls/hr IV Q35M [facility] Rx#:[id number] Vancomycin 750 mg In 250 Sodium Chloride 0.9% 250 ml @ 125 mls/hr IVPB ONCE [facility] Rx#:[id number] Intake, IV Titration 950.851 4848 40 Amount Norepinephrin 16 mg-0.9% 250.000 Ns Pmx 16 mg In 250 ml @ Titrate IV .Q0M [facility] Rx#: [id number] Norepinephrine 16 mg In 40 Dextrose 5% in Water 250 ml @ Titrate IV .Q0M [facility] Rx#:[id number] Norepinephrine 4 mg In 128.437 Dextrose 5% in Water 250 ml @ Titrate IV .Q0M [facility] Rx#:[id number] Sodium Chloride 0.9% 1, 1000 000 ml @ 999 mls/hr IV . Q1H1M [facility] Rx#:[id number] Sodium Chloride 0.9% 500 500 ml @ 1000 mls/hr IV Q35M [facility] Rx#:[id number] Output: Urine 193 237 263 Other: Voiding Method Indwelling Catheter Indwelling Catheter Indwelling Catheter Weight 49.6 kg 49.6 kg 55.1 kg Constitutional: No acute distress. Lethargic. HEENT:Mucosa moist. Neck: Neck supple. Lungs:Normal respiratory effort, on nonrebreather. Heart: Tachycardic. Abdomen: Soft. MSK:Generalized weakness. Neuro: Lethargic Skin: No obvious rash. Psych: Lethargic. Results CBC & Chem 7: 10/09/17 04:00 10/09/17 04:00 Labs: Abnormal Lab Results - Last 24 Hours (Table) 10/08/17 10/08/17 10/08/17 Range/Units 05:10 05:10 05:10 WBC 12.2 H (3.8-10.6) k/uL Hct 51.7 H (34.0-46.0) % MCV 105.6 H (80.0-100.0) fL MCHC 30.5 L (31.0-37.0) g/dL RDW 20.2 H (11.5-15.5) % Plt Count 106 L (150-450) k/uL Neutrophils # 8.9 H (1.3-7.7) k/uL PT 16.2 H (9.0-12.0) sec INR 1.8 H (<1.2) APTT 36.9 H (22.0-30.0) sec ABG pH (7.35-7.45) ABG pO2 (83-108) mmHg ABG HCO3 (21-25) mmol/L ABG Total CO2 (19-24) mmol/L ABG O2 Saturation (94-97) % Chloride 114 H (98-107) mmol/L Carbon Dioxide 13 L (22-30) mmol/L BUN 91 H* (7-17) mg/dL Creatinine 1.50 H (0.52-1.04) mg/dL Glucose 156 H (74-99) mg/dL POC Glucose (mg/dL) (75-99) mg/dL Plasma Lactic Acid Stalin (0.7-2.0) mmol/L Phosphorus 4.9 H (2.5-4.5) mg/dL Magnesium 2.5 H (1.6-2.3) mg/dL Total Bilirubin (0.2-1.3) mg/dL AST (14-36) U/L ALT (9-52) U/L Alkaline Phosphatase (38-126) U/L Ammonia (<30) umol/L 10/08/17 10/08/17 10/08/17 Range/Units 05:10 06:07 08:16 WBC (3.8-10.6) k/uL Hct (34.0-46.0) % MCV (80.0-100.0) fL MCHC (31.0-37.0) g/dL RDW (11.5-15.5) % Plt Count (150-450) k/uL Neutrophils # (1.3-7.7) k/uL PT (9.0-12.0) sec INR (<1.2) APTT (22.0-30.0) sec ABG pH 7.14 L* (7.35-7.45) ABG pO2 132 H (83-108) mmHg ABG HCO3 15 L (21-25) mmol/L ABG Total CO2 16 L (19-24) mmol/L ABG O2 Saturation 99.0 H (94-97) % Chloride (98-107) mmol/L Carbon Dioxide (22-30) mmol/L BUN (7-17) mg/dL Creatinine (0.52-1.04) mg/dL Glucose (74-99) mg/dL POC Glucose (mg/dL) 169 H (75-99) mg/dL Plasma Lactic Acid Stalin (0.7-2.0) mmol/L Phosphorus (2.5-4.5) mg/dL Magnesium (1.6-2.3) mg/dL Total Bilirubin 8.6 H (0.2-1.3) mg/dL AST 309 H (14-36) U/L ALT 139 H (9-52) U/L Alkaline Phosphatase 782 H (38-126) U/L Ammonia (<30) umol/L 10/08/17 10/08/17 10/08/17 Range/Units 11:53 14:33 18:04 WBC (3.8-10.6) k/uL Hct (34.0-46.0) % MCV (80.0-100.0) fL MCHC (31.0-37.0) g/dL RDW (11.5-15.5) % Plt Count (150-450) k/uL Neutrophils # (1.3-7.7) k/uL PT (9.0-12.0) sec INR (<1.2) APTT (22.0-30.0) sec ABG pH (7.35-7.45) ABG pO2 (83-108) mmHg ABG HCO3 (21-25) mmol/L ABG Total CO2 (19-24) mmol/L ABG O2 Saturation (94-97) % Chloride (98-107) mmol/L Carbon Dioxide (22-30) mmol/L BUN (7-17) mg/dL Creatinine (0.52-1.04) mg/dL Glucose (74-99) mg/dL POC Glucose (mg/dL) 200 H 216 H (75-99) mg/dL Plasma Lactic Acid Stalin 2.3 H* (0.7-2.0) mmol/L Phosphorus (2.5-4.5) mg/dL Magnesium (1.6-2.3) mg/dL Total Bilirubin (0.2-1.3) mg/dL AST (14-36) U/L ALT (9-52) U/L Alkaline Phosphatase (38-126) U/L Ammonia 48 H (<30) umol/L 10/08/17 10/08/17 Range/Units 19:15 20:25 WBC (3.8-10.6) k/uL Hct (34.0-46.0) % MCV (80.0-100.0) fL MCHC (31.0-37.0) g/dL RDW (11.5-15.5) % Plt Count (150-450) k/uL Neutrophils # (1.3-7.7) k/uL PT (9.0-12.0) sec INR (<1.2) APTT (22.0-30.0) sec ABG pH (7.35-7.45) ABG pO2 (83-108) mmHg ABG HCO3 (21-25) mmol/L ABG Total CO2 (19-24) mmol/L ABG O2 Saturation (94-97) % Chloride (98-107) mmol/L Carbon Dioxide (22-30) mmol/L BUN (7-17) mg/dL Creatinine (0.52-1.04) mg/dL Glucose (74-99) mg/dL POC Glucose (mg/dL) 188 H (75-99) mg/dL Plasma Lactic Acid Stalin 2.7 H* (0.7-2.0) mmol/L Phosphorus (2.5-4.5) mg/dL Magnesium (1.6-2.3) mg/dL Total Bilirubin (0.2-1.3) mg/dL AST (14-36) U/L ALT (9-52) U/L Alkaline Phosphatase (38-126) U/L Ammonia (<30) umol/L Microbiology - Last 24 Hours (Table) 10/07/17 17:30 Blood Culture - Preliminary Blood No Growth after 24 hours 10/07/17 18:00 Urine Culture - Preliminary Urine,Voided Chest x-ray: report reviewed CT scan - abdomen: report reviewed, image reviewed CT Scan - head: report reviewed US - abdomen: report reviewed Assessment and Plan Assessment: 1. Small cell lung cancer 2. Septic shock 3. Liver lesions Plan: Ms. Nari is a 76 yo female with remote history of ovarian cancer treated in and no recurrence, and more recent diagnosis of limited stage bulky small cell lung cancer, s/p chemo, lung RT, and prophylactic WBRT, last treatment on 08/11/17, here for septic shock and generalized weakness. She is deteriorating despite broad spectrum antibiotics, and on high doses of pressors. Likely condition due to overwhelming metastatic small cell lung cancer recurrence. Spoke with pt's primary oncologist Dr. Tai as well as with IR and nursing staff. Liver lesion described as possible abscess on CT AP without contrast is likely metastatic lesion. Liver US suggestive of several concerning liver lesion as well as likely bone lesions, highly suspicious of metastatic disease. Also pt deteriorating quickly despite antibiotics. Prognosis extremely poor. With this, I had a long discussion with pt's family (daughter and son) and recommended comfort care, no escalation of care, and DNR/DNI status. They will discuss with rest of family and let us know of the decision, but seem to be wanting pt to be more comfortable. They are trying to abide by her wishes in the ED that she wanted aggressive measures, however I explained that at that time, the thought was her condition was due to dehydration and infection, which are reversible. Her cancer however is not reversible. They will discuss and let us know.
[2017-10-09 11:33] VITALS: BP 79/41; PULSE 106; RESP 11; TEMP 99.7
--- NOTE | 2017-10-09 12:46 | P.PN ---
Subjective Progress Note Date: 10/09/17 Principal diagnosis: Abdominal sepsis and metastatic ovarian cancer, septic shock This is a 76-year-old female with history of metastatic ovarian cancer, undergoing chemotherapy brought into the ER yesterday with generalized weakness. Patient has been confused, she had no oral intake for a number of days, patient is apparently undergoing extensive chemotherapy for ovarian cancer. And over the last 7 days, patient has been getting weaker, unable to eat, confused, unable to walk, and basically going downhill steadily. Patient has been laying on the couch, soiling herself and unable to get to the bathroom. Upon arrival to the ER, the patient was profoundly hypotensive and dehydrated. Patient was given multiple boluses of fluids, a central line was placed by the ER physician, and she was placed on norepinephrine presently at 40 mcg/m. Since admission last night, the patient was given more fluid boluses , and her urine output remains marginal, blood pressure remains relatively low. ABG this morning showed a pO2 of 132 pH of 7.14 and pCO2 of 43. CBC is relatively normal. CT of the abdomen and pelvis showed significant abnormalities there is a large liver, free fluid noted around the liver, there is also a 96 cm thick walled cystic fluid collection in the right upper quadrant just below the right lobe of the liver from air in the medial at anterior aspect of the mass. The right upper quadrant mass was felt to be complex in nature, and the possibility of abscess was raised. However when the interventional radiologist was consulted for possible subcutaneous drainage, he felt that this is likely a metastatic mass in the right upper quadrant rather than being an abscess. General surgery was consulted, and felt that the patient is not a candidate for any surgical intervention at this point. At this point patient was placed on antibiotics empirically, infectious disease consult patient was initiated, patient has ALLERGIES to multiple medications, and her overall clinical status seems extremely poor at this point. CODE STATUS is full code at this point according to her son and daughter. These were previously expressed patient's wishes according to the children. The patient is confused, she is unable to give any history, she is moaning and groaning in bed, and she was placed on sodium bicarb drip for anion gap metabolic acidosis. And she is presently on non-rebreather mask with a pO2 of 132. Patient was reevaluated today on 10/09/2017, remains on nonrebreather mask, remains hemodynamically unstable, on relatively high dose of norepinephrine 40 g, received multiple fluid boluses, repeat ABG this morning is reflecting improvement in metabolic acidosis, but worsening respiratory acidosis. Patient was placed on BiPAP, and I requested family to be brought into the ICU to discuss comfort care measures with them. The son and the daughter both came in , and apparently the CODE STATUS was changed last night to DO NOT RESUSCITATE, today I made the children well aware that her condition is deteriorating, and at this point I strongly recommend only comfort measures. Both were agreeable to proceed with comfort care, and will proceed as such. Objective - Vital Signs Vital signs: Vital Signs Temp 99.7 F H 10/09/17 08:00 Pulse 106 H 10/09/17 11:30 Resp 11 L 10/09/17 11:30 BP 79/41 10/09/17 11:30 Pulse Ox 95 10/09/17 11:30 Intake & Output 10/08/17 10/09/17 10/09/17 18:59 06:59 18:59 Intake Total 3450 2550.00 1706.25 Output Total 387 418 42 Balance 3063 2132.00 1664.25 Weight 55.1 kg 59 kg Intake: IV 1950 2300 500 Dextrose 5% in Water 1, 900 1200 500 000 ml @ 100 mls/hr IV . Q85H10B ONE with Sodium Bicarb (1 Meq/ml) 150 ml Rx#:[id number] Meropenem 1 gm In Sodium 100 100 Chloride 0.9% 100 ml @ 200 mls/hr IVPB Q8HR [facility] Rx#:[id number] Sodium Chloride 0.9% 1, 200 000 ml @ 100 mls/hr IV . Q10H [facility] Rx#:[id number] Sodium Chloride 0.9% 1, 1000 000 ml @ 999 mls/hr IV . Q1H1M [facility] Rx#:[id number] Sodium Chloride 0.9% 500 500 ml @ 1000 mls/hr IV Q35M [facility] Rx#:[id number] Vancomycin 750 mg In 250 Sodium Chloride 0.9% 250 ml @ 125 mls/hr IVPB ONCE [facility] Rx#:[id number] Intake, IV Titration 1500 250.00 1206.25 Amount Norepinephrine 16 mg In 250.00 206.25 Dextrose 5% in Water 250 ml @ Titrate IV .Q0M [facility] Rx#:[id number] Sodium Chloride 0.9% 1, 1000 000 ml @ 999 mls/hr IV . Q1H1M [facility] Rx#:[id number] Sodium Chloride 0.9% 1, 1000 000 ml @ 999 mls/hr IV . Q1H1M [facility] Rx#:[id number] Sodium Chloride 0.9% 500 500 ml @ 1000 mls/hr IV Q35M [facility] Rx#:[id number] Output: Urine 387 418 42 Other: Voiding Method Indwelling Catheter Indwelling Catheter Indwelling Catheter # Bowel Movements 0 - Exam Physical Exam: Revealed a 76-year-old female looks chronically ill, frail, in respiratory distress, placed on BiPAP Head: Atraumatic, normocephalic. There is however sunken eyeballs, and facial oral wasting noted. HEENT:[Neck is supple.] [No neck masses.] [No thyromegaly.] [No JVD.] Very dry mucous membranes, no icterus. PERRLA, EOMI. Chest: [Diminished breath sounds at the bases no crackles or rhonchi or wheezes. Cardiac Exam: [Normal S1 and S2, no S3 gallop, no murmur.] Abdomen: [Soft, mild tenderness is noted especially in the right upper quadrant , no megaly, no rebound, no guarding, normal bowel sounds.] Extremities: [No clubbing, no edema, no cyanosis.] Neurological Exam: Lethargic, opens eyes only to verbal stimuli, but does not follow any instructions. Lymphatics: No lymphadenopathy. Musculoskeletal: Extreme muscle wasting noted, no limitation in range of motion. Skin: No rashes. - Labs CBC & Chem 7: 10/09/17 04:00 10/09/17 04:00 Labs: Abnormal Lab Results - Last 24 Hours (Table) 10/08/17 10/08/17 10/08/17 Range/Units 14:33 18:04 19:15 WBC (3.8-10.6) k/uL MCV (80.0-100.0) fL MCHC (31.0-37.0) g/dL RDW (11.5-15.5) % Plt Count (150-450) k/uL Neutrophils # (Manual) (1.3-7.7) k/uL Lymphocytes # (Manual) (1.0-4.8) k/uL Nucleated RBCs (0-0) /100 WBC ABG pH (7.35-7.45) ABG pCO2 (35-45) mmHg ABG Total CO2 (19-24) mmol/L Chloride (98-107) mmol/L BUN (7-17) mg/dL Creatinine (0.52-1.04) mg/dL Glucose (74-99) mg/dL POC Glucose (mg/dL) 216 H (75-99) mg/dL Plasma Lactic Acid Stalin 2.3 H* 2.7 H* (0.7-2.0) mmol/L Calcium (8.4-10.2) mg/dL Ammonia 48 H (<30) umol/L 10/08/17 10/09/17 10/09/17 Range/Units 20:25 04:00 04:00 WBC 11.7 H (3.8-10.6) k/uL MCV 105.6 H (80.0-100.0) fL MCHC 30.0 L (31.0-37.0) g/dL RDW 20.7 H (11.5-15.5) % Plt Count 96 L (150-450) k/uL Neutrophils # (Manual) 10.60 H (1.3-7.7) k/uL Lymphocytes # (Manual) 0.47 L (1.0-4.8) k/uL Nucleated RBCs 3 H (0-0) /100 WBC ABG pH (7.35-7.45) ABG pCO2 (35-45) mmHg ABG Total CO2 (19-24) mmol/L Chloride 112 H (98-107) mmol/L BUN 79 H (7-17) mg/dL Creatinine 1.30 H (0.52-1.04) mg/dL Glucose 153 H (74-99) mg/dL POC Glucose (mg/dL) 188 H (75-99) mg/dL Plasma Lactic Acid Stalin (0.7-2.0) mmol/L Calcium 8.3 L (8.4-10.2) mg/dL Ammonia (<30) umol/L 10/09/17 10/09/17 10/09/17 Range/Units 04:01 08:18 08:22 WBC (3.8-10.6) k/uL MCV (80.0-100.0) fL MCHC (31.0-37.0) g/dL RDW (11.5-15.5) % Plt Count (150-450) k/uL Neutrophils # (Manual) (1.3-7.7) k/uL Lymphocytes # (Manual) (1.0-4.8) k/uL Nucleated RBCs (0-0) /100 WBC ABG pH 7.17 L* (7.35-7.45) ABG pCO2 62 H (35-45) mmHg ABG Total CO2 25 H (19-24) mmol/L Chloride (98-107) mmol/L BUN (7-17) mg/dL Creatinine (0.52-1.04) mg/dL Glucose (74-99) mg/dL POC Glucose (mg/dL) 140 H 103 H (75-99) mg/dL Plasma Lactic Acid Stalin (0.7-2.0) mmol/L Calcium (8.4-10.2) mg/dL Ammonia (<30) umol/L 10/09/17 Range/Units 09:00 WBC (3.8-10.6) k/uL MCV (80.0-100.0) fL MCHC (31.0-37.0) g/dL RDW (11.5-15.5) % Plt Count (150-450) k/uL Neutrophils # (Manual) (1.3-7.7) k/uL Lymphocytes # (Manual) (1.0-4.8) k/uL Nucleated RBCs (0-0) /100 WBC ABG pH (7.35-7.45) ABG pCO2 (35-45) mmHg ABG Total CO2 (19-24) mmol/L Chloride (98-107) mmol/L BUN (7-17) mg/dL Creatinine (0.52-1.04) mg/dL Glucose (74-99) mg/dL POC Glucose (mg/dL) (75-99) mg/dL Plasma Lactic Acid Stalin (0.7-2.0) mmol/L Calcium (8.4-10.2) mg/dL Ammonia 70 H (<30) umol/L Microbiology - Last 24 Hours (Table) 10/07/17 17:30 Blood Culture - Preliminary Blood No Growth after 24 hours Assessment and Plan Assessment: Impression: 1 acute hypovolemic shock, and septic shock. 2 profound hypotension secondary to dehydration and strongly suspect abdominal sepsis. 3 acute anion gap metabolic acidosis secondary to dehydration and sepsis. 4 severe medical debility and severe protein calorie malnutrition. 5 metastatic ovarian cancer 6 impending hypoxic respiratory failure, multifactorial secondary to above. 7 strongly doubt any pneumonia based on the chest x-ray findings, the findings are mostly findings of atelectasis but clinically no evidence of pneumonia. 8 acute kidney injury secondary to dehydration, hypovolemia and acute tubular necrosis secondary to hypotension Recommendation: Had a long discussion with the son and daughter at bedside, both are agreeable now to comfort care measures, and we'll proceed as such, that the patient pass in peace comfort and dignity. Time with Patient: Greater than 30
[2017-10-10 06:11] LABS: ABG PH 7.14 (7.35-7.45)
== END 2017-10-09 11:51 | disposition hospice, inpatient (51) | DRG 871 ==
LOC: EC 15:34 → 6ICU 19:33
PROVIDERS: ADMIT Internal Medicine; ATTEND Internal Medicine
PROC: 02HV33Z Insertion of Infusion Device into Superior Vena Cava, Percutaneous Approach (ICD-10-PCS; 2017-10-07)
PROC: 5A09357 Assistance with Respiratory Ventilation, Less than 24 Consecutive Hours, Continuous Positive Airway Pressure (ICD-10-PCS; principal; 2017-10-09)
DX: A41.9 Sepsis, unspecified organism (principal); K75.0 Abscess of liver; R65.21 Severe sepsis with septic shock; G93.41 Metabolic encephalopathy; K72.00 Acute and subacute hepatic failure without coma; N17.0 Acute kidney failure with tubular necrosis; J96.01 Acute respiratory failure with hypoxia; E43 Unspecified severe protein-calorie malnutrition; R57.1 Hypovolemic shock; I21.A1 Myocardial infarction type 2; C56.9 Malignant neoplasm of unspecified ovary; C78.7 Secondary malignant neoplasm of liver and intrahepatic bile duct; C78.01 Secondary malignant neoplasm of right lung; R64 Cachexia; E87.2 Acidosis; J98.11 Atelectasis; Z68.23 Body mass index [BMI] 23.0-23.9, adult; I10 Essential (primary) hypertension; J44.9 Chronic obstructive pulmonary disease, unspecified; Z51.5 Encounter for palliative care; Z66 Do not resuscitate; Z87.891 Personal history of nicotine dependence; Z90.710 Acquired absence of both cervix and uterus; Z92.3 Personal history of irradiation; Z88.6 Allergy status to analgesic agent; Z88.4 Allergy status to anesthetic agent; Z88.5 Allergy status to narcotic agent; Z88.0 Allergy status to penicillin; Z88.8 Allergy status to other drugs, medicaments and biological substances; T68.XXXA Hypothermia, initial encounter
CPT/HCPCS: 36415; 36556; 36600; 51702; 70450; 71045; 72125; 74176; 76705; 80048; 80053; 80202; 81003; 82140; 82247; 82550; 82553; 82805; 83605; 83735; 84075; 84100; 84134; 84450; 84460; 84484; 85025; 85610; 85730; 87040; 87077; 87086; 87186; 93005; 96361; 96365; 96366; 96368; 99285

== ENCOUNTER 2017-10-09 11:45 | Inpatient (IN) | payer MEDICAID ==
[2017-10-09] MEDS ORDERED: MORPHINE SULFATE (100 MG/2 ML) 100 MG in SODIUM CHLORIDE 0.9% 100 ML IV SCH (12:00)
[2017-10-09] MEDS ORDERED: SCOPOLAMINE 1.5MG/72HR PATCH TRANSDERM PRN (12:03)
[2017-10-09] MEDS ORDERED: LORazepam 2 MG/ML INJ IV PRN (12:03)
[2017-10-09] MEDS ORDERED: ATROPINE OPHTH SOLN 1% 5ML BTL SUBLINGUAL PRN (12:03)
[2017-10-09] MEDS ORDERED: ONDANSETRON 4 MG/2 ML VIAL IVP PRN (12:03)
[2017-10-09 20:26] VITALS: PULSE 0; RESP 0
--- NOTE | 2017-10-09 22:31 | P.DS ---
Providers Date of admission: 10/09/17 11:56 Attending physician: Chevy Franklin MD Primary care physician: Chevy Franklin MD Hospital Course: this is a 76 yo F with pmh of metastatic ovarian cancer on chemotherapy who presents with generalized weakness over several day and not eating well found to be profoundly hypotensive and dehydrated , she has been treated in the ICU with central line and pressers like levophed , pt is suspected to have septic shock too, liver lesion is found on CT of abd is suspected for liver abscess vs liver met, however surgeon found her not a surgical candidate, she received antibiotics she remained to do poorly and today she was converted to comfort care by the ICU team together with the family, i saw pt in the ICU and examined her , she was unresponsive with shallow breathing , Chest: B/L crepitation , heart : S1S2 RRR , no murmur, abd : soft . pt at 1951 prounounced by cristian torres RN and rosaline stewart RN. daughter was at bedside, as per documentation pt has on 10/09/2017 , Plan - Discharge Summary New Discharge Prescriptions: No Action No Known Home Medications Discharge Medication List No Known Home Medications 10/07/17 [History]
== END 2017-10-09 22:11 | disposition expired | DRG 951 ==
LOC: 6ICU 11:56
PROVIDERS: ADMIT Internal Medicine; ATTEND Internal Medicine
DX: Z51.5 Encounter for palliative care (principal); A41.9 Sepsis, unspecified organism; R65.21 Severe sepsis with septic shock; K75.0 Abscess of liver; G93.41 Metabolic encephalopathy; C56.9 Malignant neoplasm of unspecified ovary; C78.00 Secondary malignant neoplasm of unspecified lung; C78.7 Secondary malignant neoplasm of liver and intrahepatic bile duct; N17.9 Acute kidney failure, unspecified; E86.0 Dehydration; R77.9 Abnormality of plasma protein, unspecified; J44.9 Chronic obstructive pulmonary disease, unspecified; Z88.5 Allergy status to narcotic agent; Z88.0 Allergy status to penicillin; Z88.8 Allergy status to other drugs, medicaments and biological substances; Z87.891 Personal history of nicotine dependence; Z88.6 Allergy status to analgesic agent; Z91.041 Radiographic dye allergy status; Z90.49 Acquired absence of other specified parts of digestive tract; Z90.710 Acquired absence of both cervix and uterus